=== PATIENT | female | born 1980 | race Caucasian/White ===

== ENCOUNTER 2018-02-28 01:06 | Inpatient (IN) | payer OTHER ==
--- NOTE | 2018-02-28 01:20 | PDOC ---
History of Present Illness - General Chief Complaint: Pain, Acute Stated Complaint: ABD PAIN Time Seen by Provider: 02/28/18 01:20 Past History - Past Medical History Allergies/Adverse Reactions: Allergies Allergy/AdvReac Type Severity Reaction Status Date / Time No Known Allergies Allergy Verified 02/28/18 01:14 Home Medications: Ambulatory Orders Diphenhydramine HCl [Benadryl Capsule -] 25 mg PO Q6H 11/26/14 Anemia: Yes Asthma: No Cancer: No Cardiac Disorders: No Diabetes: No HTN: No Seizures: No Thyroid Disease: No - Suicide/Smoking/Psychosocial Hx Smoking Status: Yes Smoking History: Never smoked Have you smoked in the past 12 months: No Number of Cigarettes Smoked Daily: 8 Information on smoking cessation initiated: No 'Breaking Loose' booklet given: 04/05/14 Hx Alcohol Use: No Drug/Substance Use Hx: No Substance Use Type: None Hx Substance Use Treatment: No *Physical Exam - Vital Signs Last Vital Signs Temp Pulse Resp BP Pulse Ox 99.6 F 101 H 18 118/68 98 02/28/18 01:14 02/28/18 01:14 02/28/18 01:14 02/28/18 01:14 02/28/18 01:14 *DC/Admit/Observation/Transfer - Referrals Referrals: Sondra Ames [Primary Care Provider] - - Patient Instructions - Post Discharge Activity
[2018-02-28] MEDS ORDERED: morphine CARPU-JECT 2 MG/1 ML DISP.SYRIN IVPUSH ONE (01:23)
[2018-02-28] MEDS ORDERED: SODIUM CHLORIDE 1,000 ML IV STA (01:25)
[2018-02-28] MEDS ORDERED: MORPHINE SULFATE 2 MG/ML VIAL ONE (01:37)
[2018-02-28 01:40] LABS: BASO % 0.3 % (0-2.0); EOS % 0.1 % (0-4.5); HEMATOCRIT 35.9 % (32.4-45.2); HEMOGLOBIN 12.1 GM/dL (10.7-15.3); MCH 30.6 pg (25.7-33.7); MCHC 33.7 g/dl (32.0-36.0); MEAN PLT VOLUME 8.4 fl (7.5-11.1); MONO % 9.3 % (3.8-10.2); NEUT % 77.3 % (42.8-82.8); PLATELET COUNT 410 K/MM3 (134-434); RBC 3.94 M/mm3 (3.60-5.2); RDW 13.1 % (11.6-15.6); WHITE BLOOD COUNT 13.9 K/mm3 (4.0-10.0)
--- NOTE | 2018-02-28 01:54 | PDOC ---
History of Present Illness - General Chief Complaint: Pain, Acute Stated Complaint: ABD PAIN Time Seen by Provider: 02/28/18 01:20 History Source: Patient Exam Limitations: No Limitations - History of Present Illness Travel History: No Initial Comments: 02/28/18 02:19 Best Contact: PCP: None Pmhx: None Pshx: None Allergies: nkda FH:0 Social Hx: Cigarettes/ 0 Alcohol/ 0 Drugs/0 LMP:02/05/18 37-year-old female presents to the emergency department complaining of subjective fever/chills, nausea, with right-sided flank pain x7d but denies vomiting, dizziness, headache, lightheadedness, neck/back pains, chest pain, shortness of breath, abdominal pains, pelvic pain, urinary frequency/urgency/ hesitancy, hematuria. Pain to the flank is described as 6/10 sharp nonradiating intermittent discomfort which is exacerbated on touch and alleviated minimally at rest. Past History - Past Medical History Allergies/Adverse Reactions: Allergies Allergy/AdvReac Type Severity Reaction Status Date / Time No Known Allergies Allergy Verified 02/28/18 01:14 Home Medications: Ambulatory Orders Diphenhydramine HCl [Benadryl Capsule -] 25 mg PO Q6H 11/26/14 Anemia: Yes Asthma: No Cancer: No Cardiac Disorders: No COPD: No Diabetes: No HTN: No Seizures: No Thyroid Disease: No - Immunization History Immunization Up to Date: Yes - Suicide/Smoking/Psychosocial Hx Smoking Status: Yes Smoking History: Never smoked Have you smoked in the past 12 months: No Number of Cigarettes Smoked Daily: 8 Information on smoking cessation initiated: No 'Breaking Loose' booklet given: 04/05/14 Hx Alcohol Use: No Drug/Substance Use Hx: No Substance Use Type: None Hx Substance Use Treatment: No Review of Systems - Review of Systems Able to Perform ROS?: Yes Comments:: 02/28/18 02:21 CONSTITUTIONAL: +subjective fever Absent: chills, diaphoresis, generalized weakness, malaise, loss of appetite HEENT: Absent: rhinorrhea, nasal congestion, throat pain, throat swelling, difficulty swallowing, mouth swelling, ear pain, eye pain, visual Changes CARDIOVASCULAR: Absent: chest pain, loss of consciousness, palpitations, irregular heart rate, peripheral edema RESPIRATORY: Absent: cough, shortness of breath, dyspnea with exertion, orthopnea, wheezing, stridor, hemoptysis GASTROINTESTINAL: Absent: abdominal pain, abdominal distension, nausea, vomiting, diarrhea, constipation, melena, hematochezia GENITOURINARY: +left flank pain Absent: dysuria, frequency, urgency, hesitancy, hematuria,genital pain MUSCULOSKELETAL: Absent: myalgia, arthralgia, joint swelling SKIN: Absent: rash, itching, pallor HEMATOLOGIC/IMMUNOLOGIC: Absent: easy bleeding, easy bruising, lymphadenopathy, frequent infections ENDOCRINE: Absent: unexplained weight gain, unexplained weight loss, heat intolerance, cold intolerance NEUROLOGIC: Absent: headache, focal weakness or paresthesias, dizziness, unsteady gait, seizure, mental status changes, bladder or bowel incontinence PSYCHIATRIC: Absent: anxiety, depression, suicidal or homicidal ideation, hallucinations. Is the patient limited [place] proficient: No *Physical Exam - Vital Signs Last Vital Signs Temp Pulse Resp BP Pulse Ox 99.6 F 101 H 18 118/68 97 02/28/18 01:14 02/28/18 01:14 02/28/18 01:14 02/28/18 01:14 02/28/18 01:45 - Physical Exam Comments: 02/28/18 02:21 GENERAL: Well developed, well nourished. Awake and alert. No acute distress. HEENT: Normocephalic, atraumatic. PERRLA, EOMI. No conjunctival pallor. Sclera are non- icteric. Moist mucous membranes. Oropharynx is clear. NECK: Supple. Full ROM. No JVD. Carotid pulses 2+ and symmetric, without bruits. No thyromegaly. No lymphadenopathy. CARDIOVASCULAR: Regular rate and rhythm. No murmurs, rubs, or gallops. Distal pulses are 2+ and symmetric. PULMONARY: No evidence of respiratory distress. Lungs clear to auscultation bilaterally. No wheezing, rales or rhonchi. ABDOMINAL: Soft. Non-tender. Non-distended. No rebound or guarding. No organomegaly. Normoactive bowel sounds. MUSCULOSKELETAL R CVAT Normal range of motion at all joints. No bony deformities or tenderness. EXTREMITIES: No cyanosis. No clubbing. No edema. No calf tenderness. SKIN: Warm and dry. Normal capillary refill. No rashes. No jaundice. NEUROLOGICAL: Alert, awake, appropriate. Cranial nerves 2-12 intact. No deficits to light touch and temperature in face, upper extremities and lower extremities. No motor deficits in the in face, upper extremities and lower extremities. Normoreflexic in the upper and lower extremities. Normal speech. Toes are down- going bilaterally. Gait is normal without ataxia. PSYCHIATRIC: Cooperative. Good eye contact. Appropriate mood and affect. ED Treatment Course - LABORATORY CBC & Chemistry Diagram: 02/28/18 01:24 02/28/18 01:24 - ADDITIONAL ORDERS Additional order review: 02/28/18 01:24 RBC 3.94 MCV 91.0 MCHC 33.7 RDW 13.1 D MPV 8.4 Neutrophils % 77.3 Lymphocytes % 13.0 D Monocytes % 9.3 Eosinophils % 0.1 D Basophils % 0.3 - RADIOLOGY Radiograph Interpretation: 02/28/18 04:[address]: Mild right hydronephrosis could be due to a 2 mm mild to distal ureteral stone versus a recently passed stone. His degree perinephric inflammation suggesting rupture calyx without loculated urinoma - Medications Given in the ED: ED Medications Discontinued Medications Generic Name Dose Route Start Last Admin Trade Name Freq PRN Reason Stop Dose Admin Morphine Sulfate 2 mg 02/28/18 01:23 02/28/18 01:40 Morphine Injection - IVPUSH 02/28/18 01:24 2 mg ONCE ONE Administration Progress Note - Progress Note Progress Note: 0442hrs: Microblogged Hospitalist for admission 0445hrs: Called Dr. Marti [phone] 0557hrs: Spoke to Dr. Marti/Urology, [facility] keep pt NPO. Hospitalist notified/ NPO *DC/Admit/Observation/Transfer Diagnosis at time of Disposition: Kidney calculus UTI (urinary tract infection) Qualifiers: Urinary tract infection type: acute cystitis Hematuria presence: without hematuria Qualified Code(s): N30.00 - Acute cystitis without hematuria - Discharge Dispostion Condition at time of disposition: Fair Decision to Admit order: Yes - Referrals Referrals: Sondra Ames [Primary Care Provider] - - Patient Instructions - Post Discharge Activity
[2018-02-28 02:10] LABS: ALBUMIN 3.5 g/dl (3.4-5.0); ALK PHOS 136 U/L (45-117); ANION GAP 7 (8-16); BILIRUBIN,TOTAL 0.3 mg/dL (0.2-1.0); BLOOD UREA NITROGEN 8 mg/dL (7-18); CALCIUM 8.6 mg/dL (8.5-10.1); CHLORIDE 104 mmol/L (98-107); CO2 27 mmol/L (21-32); CREATININE 0.7 mg/dL (0.55-1.02); GLUCOSE,RANDOM 99 mg/dL (74-106); POTASSIUM 3.8 mmol/L (3.5-5.1); SGOT/AST 55 U/L (15-37); SGPT/ALT 62 U/L (12-78); SODIUM 138 mmol/L (136-145); TOT PROT 7.3 g/dl (6.4-8.2)
[2018-02-28] MEDS ORDERED: KETOROLAC TROMETHAMINE 30 MG/1 ML VIAL IM ONE (02:33)
[2018-02-28] MEDS ORDERED: KETOROLAC TROMETHAMINE 30 MG/1 ML VIAL ONE (02:40)
[2018-02-28 03:26] LABS: URINE APPEARANCE CLOUDY; URINE BILIRUBIN NEGATIVE (<2.0 mg/dL); URINE COLOR YELLOW; URINE GLUCOSE (UA) NEGATIVE (NEGATIVE); URINE KETONE NEGATIVE (NEGATIVE); URINE NITRITE NEGATIVE (NEGATIVE); URINE UROBILINOGEN NEGATIVE mg/dL (0.2-1.0)
[2018-02-28 03:39] LABS: URINE LEUK ESTERASE 2+ (NEGATIVE); URINE PROTEIN 2+ (NEGATIVE)
[2018-02-28 03:41] LABS: EPI CELLS FEW /HPF (FEW); URINE BACTERIA MANY /hpf (NONE SEEN); URINE MUCUS MODERATE
[2018-02-28] MEDS ORDERED: PIPERACILLIN/TAZOB 3.375 GM 3.375 GM in DEXTROSE 5%-WATER - 50 ML IVPB ONE (04:32)
[2018-02-28] MEDS ORDERED: PIPERACILLIN/TAZOB 3.375 GM 3.375 GM/50 ML BAG IVPB ONE (04:35)
--- NOTE | 2018-02-28 05:31 | PN ---
Teaching Attending Note Name of Resident: Dacia Castle ATTENDING PHYSICIAN STATEMENT I saw and evaluated the patient. I reviewed the resident's note and discussed the case with the resident. I agree with the resident's findings and plan as documented. SUBJECTIVE: Patient is a 37 year old woman who presents to the ER with complaints of fever/ chills, nausea, with right-sided flank pain for 1 week. She denies vomiting, dizziness, headache, lightheadedness, neck/back pains, chest pain, shortness of breath, abdominal pains, pelvic pain, dysuria, urinary frequency/urgency/ hesitancy or hematuria. Flank pain is described as 6 out of 10, sharp, nonradiating and intermittent. She says she thought it was constipation and took a laxative but got no relief and also too Etelvina seltzer because she though it was gas but also had no relief. She had similar right flank pain during the 8th month of her last 4 years ago, but it was not investigated. No family history of stone disease. She smokes half a pack of cigarettes daily, smokes marijuana and her LMP was last month (she does not remember the exact date). She is not on any medications or control pills. She has two toddlers (3 year old and a 4 year old) and is worried about going home to care for them. OBJECTIVE: Alert, and in pains. Vital Signs Period Temp Pulse Resp BP Sys/Small Pulse Ox Last 24 Hr 99.6 F 101 18 118/68 97-98 HEENT: No Jaundice, eye redness or discharge, PERRLA, EOMI. Normocephalic, atraumatic. External ears are normal and hearing is grossly intact. No nasal discharge. Neck: Supple, nontender. No palpable adenopathy or thyromegaly. No JVD Chest: Good effort. Clear to auscultation and percussion. Heart: Regular. No S3, rub or murmur Abdomen: Not distended, soft, Right CVAT;no HSM. No rebound or guarding. Normoactive bowel sounds. Ext: Peripheral pulses intact. No leg edema. Skin: Warm and dry. No petechiae, rash or ecchymosis. Neuro: Alert. Oriented x3. CN 2-12 grossly intact. Sensation grossly intact in all four extremities and DTR are symmetric. Home Medications Medication Instructions Recorded Diphenhydramine HCl [Benadryl 25 mg PO Q6H 11/26/14 Capsule -] Abnormal Lab Results 02/28/18 02/28/18 02/28/18 01:24 01:24 03:15 WBC 13.9 H Anion Gap 7 L AST 55 H Alkaline Phosphatase 136 H Urine Protein 2+ H Urine Blood 2+ H Ur Leukocyte Esterase 2+ H ASSESSMENT AND PLAN: 1. Kidney stone disease - Patient having renal colic with possibly associated pyelonephritis. CT scan shows right hydronephrosis, ureteral stone, calyx rupture and perinephric inflammation. She has pyuria as well as hematuria. Will treat UTI with Rocephin 1 gm q 24 hours and give IV NS at 125 ml per hour. Morphine 2 mg IV q 3 hours PRN for pain, IV zofran 4 mg q 6 hours PRN for nausea and keep her NPO. Urology has been consulted. Upon discharge she should be referred to a pattern generator operator to do work up to search for risk factor for stone disease. 2. Tobacco use - Will provide her all the necessary assistance to facilitate smoking cessation and give her nicotine patch. 3. DVT prophylaxis - SCD and Early ambulation 4. Advance directives - Full code
--- NOTE | 2018-02-28 05:38 | HP ---
CHIEF COMPLAINT: R flank pain x 1 week PCP: HISTORY OF PRESENT ILLNESS: Pt is a 37 yo F no signif PMHx presenting with 9/10 sharp intermittent non radiating R flank pain for a week. Pain is not relieved by sharri seltzer or laxative.There is associated fevers and nausea, but no vomiting. No associated dysuria, hematuria, no urinary frequency, or urgency. No abdominal pain, diarrhea,SOB, cough,or chest pain. Pt has had similar pain 4 years when she was 8 months that resolved spontaneously. Pt is a current smoker - 1/2 a pack /day and quit marijuana use recently. Pt is (3 alive). Lmp- January 2018. ER course was notable for: (1) Tachycardia-101, WBC-13.9, UA- many bacteria, WBC-193, Hcg-ve, Ucx pending (2) Spiral CT -mild hydronephrosis with 2mm distal ureteral stones with ruptured calyx w/out loculated urinoma (3) Morphine, NS, zosyn, ceftriaxone Recent Travel: PAST MEDICAL HISTORY: PAST SURGICAL HISTORY: Social History: Smokin/2 pack/day Alcohol: Drugs: marijuana Family History: No hx of stones Allergies No Known Allergies Allergy (Verified 02/28/18 01:14) HOME MEDICATIONS: Home Medications Medication Instructions Recorded Diphenhydramine HCl [Benadryl 25 mg PO Q6H 11/26/14 Capsule -] REVIEW OF SYSTEMS CONSTITUTIONAL: Absent: fever, chills, diaphoresis, generalized weakness, malaise, loss of appetite, weight change HEENT: Absent: rhinorrhea, nasal congestion, throat pain, throat swelling, difficulty swallowing, mouth swelling, ear pain, eye pain, visual changes CARDIOVASCULAR: Absent: chest pain, syncope, palpitations, irregular heart rate, lightheadedness , peripheral edema RESPIRATORY: Absent: cough, shortness of breath, dyspnea with exertion, orthopnea, wheezing, stridor, hemoptysis GASTROINTESTINAL: Absent: abdominal pain, abdominal distension, nausea, vomiting, diarrhea, constipation, melena, hematochezia GENITOURINARY: Absent: dysuria, frequency, urgency, hesitancy, hematuria, flank pain, genital pain MUSCULOSKELETAL: Absent: myalgia, arthralgia, joint swelling, back pain, neck pain SKIN: Absent: rash, itching, pallor HEMATOLOGIC/IMMUNOLOGIC: Absent: easy bleeding, easy bruising, lymphadenopathy, frequent infections ENDOCRINE: Absent: unexplained weight gain, unexplained weight loss, heat intolerance, cold intolerance NEUROLOGIC: Absent: headache, focal weakness or paresthesias, dizziness, unsteady gait, seizure, mental status changes, bladder or bowel incontinence PSYCHIATRIC: Absent: anxiety, depression, suicidal or homicidal ideation, hallucinations. PHYSICAL EXAMINATION Vital Signs - 24 hr 02/28/18 02/28/18 02/28/18 01:14 01:45 05:36 Temperature 99.6 F Pulse Rate 101 H Respiratory 18 Rate Blood Pressure 118/68 O2 Sat by Pulse 98 97 97 Oximetry (%) GENERAL: Awake, alert, and fully oriented, in no mild painful distress. EARS, NOSE, THROAT: Moist mucous membranes. LUNGS: Breath sounds equal, clear to auscultation bilaterally. HEART: Regular rate and rhythm, normal S1 and S2 ABDOMEN: Soft, nontender, not distended, normoactive bowel sounds, R CVA tenderness ++ MUSCULOSKELETAL: Normal range of motion at all joints. LOWER EXTREMITIES: 2+ pulses, warm, well-perfused. Mild lateral R foot tenderness. No peripheral edema. NEUROLOGICAL: AAOx3. Normal speech. Normal gait. CBC, BMP 02/28/18 01:24 02/28/18 01:24 Laboratory Results - last 24 hr 02/28/18 02/28/18 02/28/18 01:00 01:24 01:24 WBC 13.9 H RBC 3.94 Hgb 12.1 Hct 35.9 D MCV 91.0 MCH 30.6 D MCHC 33.7 RDW 13.1 D Plt Count 410 D MPV 8.4 Absolute Neuts (auto) 10.7 Neutrophils % 77.3 Lymphocytes % 13.0 D Monocytes % 9.3 Eosinophils % 0.1 D Basophils % 0.3 Nucleated RBC % 0 Sodium 138 Potassium 3.8 Chloride 104 Carbon Dioxide 27 Anion Gap 7 L BUN 8 Creatinine 0.7 Creat Clearance w eGFR > 60 Random Glucose 99 Lactic Acid Calcium 8.6 Total Bilirubin 0.3 AST 55 H ALT 62 Alkaline Phosphatase 136 H Total Protein 7.3 Albumin 3.5 Urine Color Urine Appearance Urine pH Ur Specific [place] Urine Protein Urine Glucose (UA) Urine Ketones Urine Blood Urine Nitrite Urine Bilirubin Urine Urobilinogen Ur Leukocyte Esterase Urine WBC (Auto) Urine RBC (Auto) Ur Epithelial Cells Urine Bacteria Urine Mucus Urine HCG, Qual Negative 02/28/18 02/28/18 01:24 03:15 WBC RBC Hgb Hct MCV MCH MCHC RDW Plt Count MPV Absolute Neuts (auto) Neutrophils % Lymphocytes % Monocytes % Eosinophils % Basophils % Nucleated RBC % Sodium Potassium Chloride Carbon Dioxide Anion Gap BUN Creatinine Creat Clearance w eGFR Random Glucose Lactic Acid 0.8 Calcium Total Bilirubin AST ALT Alkaline Phosphatase Total Protein Albumin Urine Color Yellow Urine Appearance Cloudy Urine pH 5.0 Ur Specific [place] 1.018 Urine Protein 2+ H Urine Glucose (UA) Negative Urine Ketones Negative Urine Blood 2+ H Urine Nitrite Negative Urine Bilirubin Negative Urine Urobilinogen Negative Ur Leukocyte Esterase 2+ H Urine WBC (Auto) 193 Urine RBC (Auto) 25 Ur Epithelial Cells Few Urine Bacteria Many Urine Mucus Moderate Urine HCG, Qual ASSESSMENT/PLAN: Pt is a 37 yo F no signif PMHx presenting with 9/10 sharp intermittent non radiating R flank pain for a week , found to have mild hydronephrosis with 2mm distal ureteral stones with ruptured calyx w/out loculated urinoma Sepsis secondary to UTI In the setting of renal stones UA-Pyuria, WBC-13.9, tachycardia received zosyn, NS Give 1g Ceftriaxone stat Cont NS @125 Pain mx -Morphine 2mg Q3H R hydronephrosis with nephrolithiasis 2mm distal ureteral stones with ruptured calyx w/out loculated urinoma Morphine, NS, zosyn (received), ceftriaxone NPO Urology consult- Dr Marti- for cystoscopy and stent placement today NS @125 FEN Ns@125 Monitor lytes NPO PPx- Hold heparin for cystoscopy Dispo: Admit Med surg Visit type - Emergency Visit Emergency Visit: Yes ED Registration Date: 02/28/18 Care time: The patient presented to the Emergency Department on the above date and was hospitalized for further evaluation of their emergent condition. - New Patient This patient is new to me today: Yes Date on this admission: 02/28/18 - Critical Care Critical Care patient: No Hospitalist Screening - Colonoscopy Questionnaire Colonoscopy Questionnaire: Colonoscopy Questionnaire - Patient: 50 - 75 years old and never had a screening colonoscopy: No History of colon or rectal polyps, or CA: Unknown History of IBD, Crohn's disease or UC: Unknown History of abdominal radiation therapy as a child: Unknown - Relative: 1 with colon or rectal CA, or polyps at age 60 or younger: Unknown Colon or rectal CA diagnosed at age 45 or younger: Unknown Multiple relatives with colon or rectal CA: Unknown - Outcome: Screening Result: Negative Screen
[2018-02-28] MEDS ORDERED: CEFTRIAXONE 1 MG in DEXTROSE 5%-WATER - 50 ML IVPB ONE (05:53)
[2018-02-28] MEDS ORDERED: MORPHINE SULFATE 2 MG/ML VIAL IVPUSH PRN ×2 (05:56→08:55)
[2018-02-28] MEDS ORDERED: CEFTRIAXONE 1 GM in DEXTROSE 5%-WATER - 50 ML IVPB ONE (06:00)
[2018-02-28] MEDS ORDERED: SODIUM CHLORIDE 1,000 ML IV SCH ×2 (06:00→08:55)
[2018-02-28] MEDS ORDERED: CEFTRIAXONE 1 GM/50 ML BAG ONE (06:01)
[2018-02-28] MEDS ORDERED: ONDANSETRON 4 MG/2 ML VIAL IVPUSH PRN ×2 (07:12→08:55)
--- NOTE | 2018-02-28 08:10 | CON.GU ---
Consult Consult Specialty:: Referred by:: Terri Reason for Consultation:: R ureteral calculus - History of Present Illness Chief Complaint: R flank pain History of Present Illness: 37 yo F no signif PMHx presenting with 9/10 sharp intermittent non radiating R flank pain for a week. Pain is not relieved by sharri seltzer or laxative.There is associated fevers and nausea, but no vomiting. No associated dysuria, hematuria, no urinary frequency, or urgency. No abdominal pain, diarrhea,SOB, cough,or chest pain. Pt has had similar pain 4 years when she was 9 months that resolved spontaneously. Pt is a current smoker - 1/2 a pack /day and quit marijuana use recently. Pt is (3 alive). Lmp- January 2018. ER course was notable for: (1) Tachycardia-101, WBC-13.9, UA- many bacteria, WBC-193, Hcg-ve, Ucx pending (2) Spiral CT -mild hydronephrosis with 2mm distal ureteral stones with ruptured calyx w/out loculated urinoma (3) Morphine, NS, zosyn, ceftriaxone cons req - History Source History Provided By: Patient, Medical Record - Past Medical History Renal/: Yes: Renal Calculi ...LMP: 11/01/12 Infectious Disease: Yes: STD's (chlamydia treated in 1998) - Past Surgical History Past Surgical History: Yes: None - Alcohol/Substance Use Hx Alcohol Use: No History of Substance Use: reports: None - Smoking History Smoking history: Never smoked Have you smoked in the past 12 months: No Aproximately how many cigarettes per day: 8 - Social History Usual Living Arrangement: With Significant Other ADL: Independent History of Recent Travel: No Home Medications - Allergies Allergies/Adverse Reactions: Allergies Allergy/AdvReac Type Severity Reaction Status Date / Time No Known Allergies Allergy Verified 02/28/18 01:14 - Home Medications Home Medications: Ambulatory Orders Diphenhydramine HCl [Benadryl Capsule -] 25 mg PO Q6H 11/26/14 Review of Systems - Review of Systems Gastrointestinal: reports: Nausea, Vomiting Genitourinary: reports: Flank Pain Physical Exam- Vital Signs: Vital Signs Temperature 99.6 F 02/28/18 01:14 Pulse Rate 101 H 02/28/18 01:14 Respiratory Rate 18 02/28/18 01:14 Blood Pressure 118/68 02/28/18 01:14 O2 Sat by Pulse Oximetry (%) 97 02/28/18 05:36 Gastrointestinal: Yes: Soft Renal/: Yes: CVA Tenderness - Right External Genitalia: Yes: WNL Labs: CBC, BMP 02/28/18 01:24 02/28/18 01:24 Imaging - Results Cat Scan: Report Reviewed, Image Reviewed Problem List - Problems (1) Ureteral calculus Assessment/Plan: cysto R JJ stent insertion Code(s): N20.1 - CALCULUS OF URETER (2) Hydronephrosis Code(s): N13.30 - UNSPECIFIED HYDRONEPHROSIS (3) Leukocytosis Code(s): D72.829 - ELEVATED WHITE BLOOD CELL COUNT, UNSPECIFIED (4) UTI (urinary tract infection) Assessment/Plan: U cx, IV abxs Code(s): N39.0 - URINARY TRACT INFECTION, SITE NOT SPECIFIED Qualifiers: Urinary tract infection type: acute cystitis Hematuria presence: without hematuria Qualified Code(s): N30.00 - Acute cystitis without hematuria
--- NOTE | 2018-02-28 08:16 | OP ---
Operative Note - Note: Pre-Operative Diagnosis: R ureteral calculus, R hydronephrosis, UTI Operation: cystoscopy, R JJ stent insertion Findings: R ureteral calculus, R hydronephrosis Post-Operative Diagnosis: Same as Pre-op Surgeon: Guilherme Marti Anesthesiologist/CAPSULE MACHINE OPERATOR: Boris Gutierrez Anesthesia: General Estimated Blood Loss (mls): 0 Drains & Tubes with Location: 6 fr 24 cm R JJ stent Operative Report Dictated: Yes
[2018-02-28] MEDS ORDERED: MIDAZOLAM HCL 2 MG/2 ML SINGLE DOSE VIAL ONE (08:21)
[2018-02-28] MEDS ORDERED: PROPOFOL 20 ML ONE (08:21)
[2018-02-28] MEDS ORDERED: GENTAMICIN SO4 80 MG/2 ML VIAL IVPB ONE (08:30)
[2018-02-28] MEDS ORDERED: GENTAMICIN SO4 80 MG/2 ML VIAL ONE (08:33)
[2018-02-28] MEDS ORDERED: DEXAMETHASONE SOD PHOSPHATE 4 MG/1 ML VIAL ONE (08:43)
[2018-02-28] MEDS ORDERED: ACETAMINOPHEN 325 MG TABLET (FP) PO PRN ×2 (09:04→11:19)
[2018-02-28 09:05] VITALS: BMI 27.6
[2018-02-28] MEDS ORDERED: LACTATED RINGERS SOLUTION 1,000 ML IV SCH (09:15)
--- NOTE | 2018-02-28 09:28 | OP ---
DATE OF OPERATION: 02/28/2018 PREOPERATIVE DIAGNOSES: Right ureteral calculus, right hydronephrosis, and urinary tract infection. POSTOPERATIVE DIAGNOSES: Right ureteral calculus, right hydronephrosis, and urinary tract infection. PROCEDURE: Cystoscopy, right double-J stent insertion. SURGEON: Guilherme Plata MD LANDSCAPE HORTICULTURE INSTRUCTOR: None. ANESTHESIA: General via laryngeal mask. ANESTHESIOLOGIST: Boris Gutierrez DO SPECIMENS: None. CULTURES: None. DRAINS: A 6-Welsh 24-cm right double-J stent. ESTIMATED BLOOD LOSS: None. COMPLICATIONS: None. PROCEDURE: The patient was brought into the operating room, placed on the operating room table in supine position. After administration of general anesthesia via laryngeal mask, intravenous antibiotics were administered, sequential compression devices were placed, and patient was placed in the dorsal lithotomy position. The vagina and perineum were prepped and draped in the usual sterile manner. A 22-Welsh cystoscope was inserted into the bladder with the obturator in place, where the obturator was removed and urine was evacuated. The 30-degree telescope was inserted and cystoscopy was performed. Examination showed no foreign bodies, tumors, stones, inflammation. Both ureteral orifices were in the usual location with diminished efflux from the right ureteral orifice. The right ureteral orifice was now cannulated with a 0.038 guidewire, which was advanced to the level of the right renal pelvis under fluoroscopic and direct visual guidance. Under fluoroscopy, the right distal ureteral calculi were visualized faintly. The dual-lumen catheter was inserted, retrograde pyelograms done to opacify the collecting system, which demonstrated hydronephrosis with the guidewire coiled within the renal pelvis. Dual-lumen catheter was removed and a 6-Welsh 24-cm right double-J stent was inserted over the guidewire under direct visual and fluoroscopic guidance, leaving one coil in the renal pelvis and one coil in the bladder. The bladder was emptied, cystoscope removed. The patient tolerated the procedure well and was transferred to the recovery room in stable condition. GUILHERME PLATA M.D. [id number]
--- NOTE | 2018-02-28 11:26 | PN ---
Progress Note (short form) - Note Progress Note: Patient seen and examined, just got back from OR, c/o dysuria and urinary frequency. No nausea, vomiting currently. Pain well controlled. Objective: Vital Signs Period Temp Pulse Resp BP Sys/Small Pulse Ox Last 24 Hr 97.6 F-99.6 F 74-101 16-20 101-125/62-77 97-100 Intake & Output 02/25/18 02/26/18 02/27/18 02/28/18 23:59 23:59 23:59 23:59 Intake Total 550 Output Total 2300 Balance -1750 Weight 156 lb General: sitting in no acute distress Abdomen:soft, Right CVA tenderness, No suprapubic tenderness, ND Extremities: no edema Chest CTAB, no rales or wheezing Home Medications Medication Instructions Recorded Diphenhydramine HCl [Benadryl 25 mg PO Q6H 11/26/14 Capsule -] Active Medications Acetaminophen (Tylenol -) 650 mg PO Q4H PRN PRN Reason: PAIN LEVEL 1-5 Ceftriaxone Sodium 1 gm/ (Dextrose) 50 mls @ 100 mls/hr IVPB DAILY [facility] Sodium Chloride (Normal Saline -) 1,000 mls @ 100 mls/hr IV ASDIR ALL[facility] Ketorolac Tromethamine (Toradol Injection -) 15 mg IVPUSH Q6H PRN PRN Reason: PAIN LEVEL 6-10 Stop: 03/05/18 11:19 Melatonin (Melatonin) 10 mg PO HS PRN PRN Reason: INSOMNIA Ondansetron HCl (Zofran Injection) 4 mg IVPUSH Q6H PRN PRN Reason: NAUSEA Laboratory Results - last 24 hr 02/28/18 02/28/18 02/28/18 01:00 01:24 01:24 WBC 13.9 H RBC 3.94 Hgb 12.1 Hct 35.9 D MCV 91.0 MCH 30.6 D MCHC 33.7 RDW 13.1 D Plt Count 410 D MPV 8.4 Absolute Neuts (auto) 10.7 Neutrophils % 77.3 Lymphocytes % 13.0 D Monocytes % 9.3 Eosinophils % 0.1 D Basophils % 0.3 Nucleated RBC % 0 Sodium 138 Potassium 3.8 Chloride 104 Carbon Dioxide 27 Anion Gap 7 L BUN 8 Creatinine 0.7 Creat Clearance w eGFR > 60 Random Glucose 99 Lactic Acid Calcium 8.6 Total Bilirubin 0.3 AST 55 H ALT 62 Alkaline Phosphatase 136 H Total Protein 7.3 Albumin 3.5 Urine Color Urine Appearance Urine pH Ur Specific [place] Urine Protein Urine Glucose (UA) Urine Ketones Urine Blood Urine Nitrite Urine Bilirubin Urine Urobilinogen Ur Leukocyte Esterase Urine WBC (Auto) Urine RBC (Auto) Ur Epithelial Cells Urine Bacteria Urine Mucus Urine HCG, Qual Negative 02/28/18 02/28/18 01:24 03:15 WBC RBC Hgb Hct MCV MCH MCHC RDW Plt Count MPV Absolute Neuts (auto) Neutrophils % Lymphocytes % Monocytes % Eosinophils % Basophils % Nucleated RBC % Sodium Potassium Chloride Carbon Dioxide Anion Gap BUN Creatinine Creat Clearance w eGFR Random Glucose Lactic Acid 0.8 Calcium Total Bilirubin AST ALT Alkaline Phosphatase Total Protein Albumin Urine Color Yellow Urine Appearance Cloudy Urine pH 5.0 Ur Specific [place] 1.018 Urine Protein 2+ H Urine Glucose (UA) Negative Urine Ketones Negative Urine Blood 2+ H Urine Nitrite Negative Urine Bilirubin Negative Urine Urobilinogen Negative Ur Leukocyte Esterase 2+ H Urine WBC (Auto) 193 Urine RBC (Auto) 25 Ur Epithelial Cells Few Urine Bacteria Many Urine Mucus Moderate Urine HCG, Qual CT A/P results reviewed Assessment/Plan: 37 yof with no significant pMHx here with Obstructive uropathy and UTI with pyelonephritis. -Nephrolithiasis with obstructive uropathy s/p right ureteral stent placement -Complicated UTI with right sided pyelonephritis with early sepsis -Nicotine dependence Plan: Urology input noted, s/p stent placement. D/c morphine. Acetaminophen/toradol prn for pain. Decreased IVF to 100 ml/hr. PO as tolerated. Ceftriaxone, follow up urine cultures. anticipate 10-14 days treatment. Nicotine patch DVTPPx with lovenox with lovenox in 24 hours Dispo pending clinical improvement, likely in 1-2 days. Plan discussed with patient in detail, all questions answered. Visit type - Emergency Visit Emergency Visit: No - New Patient This patient is new to me today: Yes Date on this admission: 02/28/18 - Critical Care Critical Care patient: No - Discharge Referral Referred to [facility] Med P.C.: No
[2018-02-28] MEDS: NICOTINE 14 MG/24 HOURS TOPICAL PATCH TD SCH (12:22)
[2018-02-28] MEDS: SODIUM CHLORIDE 1,000 ML IV SCH (12:24)
[2018-02-28] MEDS: KETOROLAC TROMETHAMINE 15 MG/ML VIAL IVPUSH PRN (14:31)
[2018-02-28] MEDS: MELATONIN 5 MG TABLETS PO PRN (23:45)
[2018-03-01] MEDS: KETOROLAC TROMETHAMINE 15 MG/ML VIAL IVPUSH PRN ×2 (00:37→07:02)
[2018-03-01] MEDS: SODIUM CHLORIDE 1,000 ML IV SCH ×2 (03:09→12:27)
[2018-03-01 07:40] LABS: BASO % 0.7 % (0-2.0); EOS % 0.1 % (0-4.5); HEMATOCRIT 30.2 % (32.4-45.2); HEMOGLOBIN 10.2 GM/dL (10.7-15.3); LYMPH % 26.5 % (8-40); MCH 31.2 pg (25.7-33.7); MCHC 33.7 g/dl (32.0-36.0); MEAN CELL VOLUME 92.5 fl (80-96); MEAN PLT VOLUME 9.3 fl (7.5-11.1); MONO % 7.4 % (3.8-10.2); NEUT % 65.3 % (42.8-82.8); PLATELET COUNT 340 K/MM3 (134-434); RBC 3.26 M/mm3 (3.60-5.2); RDW 12.9 % (11.6-15.6)
[2018-03-01 08:04] LABS: ANION GAP 9 (8-16); BLOOD UREA NITROGEN 7 mg/dL (7-18); CALCIUM 8.2 mg/dL (8.5-10.1); CHLORIDE 109 mmol/L (98-107); CO2 22 mmol/L (21-32); CREATININE 0.4 mg/dL (0.55-1.02); GLUCOSE,RANDOM 84 mg/dL (74-106); POTASSIUM 3.9 mmol/L (3.5-5.1); SODIUM 140 mmol/L (136-145)
--- NOTE | 2018-03-01 08:28 | PN ---
Progress Note, Physician Chief Complaint: day 1 s/p cysto/stent - Current Medication List Current Medications: Active Medications Acetaminophen (Tylenol -) 650 mg PO Q4H PRN PRN Reason: PAIN LEVEL 1-5 Last Admin: 03/01/18 05:40 Dose: 650 mg Enoxaparin Sodium (Lovenox -) 40 mg SQ DAILY [facility] Ceftriaxone Sodium 1 gm/ (Dextrose) 50 mls @ 100 mls/hr IVPB DAILY [facility] Sodium Chloride (Normal Saline -) 1,000 mls @ 100 mls/hr IV ASDIR ALLEN Last Admin: 03/01/18 03:09 Dose: 100 mls/hr Ketorolac Tromethamine (Toradol Injection -) 15 mg IVPUSH Q6H PRN PRN Reason: PAIN LEVEL 6-10 Stop: 03/05/18 11:19 Last Admin: 03/01/18 07:02 Dose: 15 mg Melatonin (Melatonin) 10 mg PO HS PRN PRN Reason: INSOMNIA Last Admin: 02/28/18 23:45 Dose: 10 mg Nicotine (Nicoderm Patch -) 14 mg TD DAILY [facility] Last Admin: 02/28/18 12:22 Dose: 14 mg Ondansetron HCl (Zofran Injection) 4 mg IVPUSH Q6H PRN PRN Reason: NAUSEA Oxycodone/Acetaminophen (Percocet 5/325 -) 1 combo PO ONCE ONE Stop: 03/01/18 08:01 - Objective Vital Signs: Vital Signs Temperature 97.9 F 03/01/18 06:00 Pulse Rate 85 03/01/18 06:00 Respiratory Rate 20 03/01/18 06:00 Blood Pressure 132/92 03/01/18 06:00 O2 Sat by Pulse Oximetry (%) 98 02/28/18 21:00 Labs: CBC, BMP 03/01/18 06:30 03/01/18 06:30 Assessment/Plan Doing well after GA for cysto; no anesthetic issues/complications
[2018-03-01] MEDS ORDERED: ACETAMINOPHEN 325 MG TABLET (FP) PO ONE ×3 (09:00→23:15)
[2018-03-01] MEDS ORDERED: oxyCODONE HCL 5 MG TABLET PO ONE ×3 (09:00→23:15)
[2018-03-01] MEDS ORDERED: CEFTRIAXONE 1,000 MG in DEXTROSE 5%-WATER - 50 ML IVPB SCH (10:00)
[2018-03-01] MEDS ORDERED: PT OWN MED DRAWER 7, Y5N ONE (10:46)
[2018-03-01] MEDS ORDERED: cefTRIAXone SODIUM 1 GM VIAL ONE (10:47)
[2018-03-01] MEDS ORDERED: DEXTROSE 5%-WATER - 50 ML IVPB ONE (10:47)
[2018-03-01] MEDS: NICOTINE 14 MG/24 HOURS TOPICAL PATCH TD SCH (11:12)
[2018-03-01] MEDS: ENOXAPARIN NA (PORCINE) 40 MG/0.4 ML DISP.SYRIN SQ SCH (11:12)
[2018-03-01] MEDS: CEFTRIAXONE 1 GM in DEXTROSE 5%-WATER - 50 ML IVPB SCH (11:12)
[2018-03-01] MEDS: PHENAZOPYRIDINE HCL 100 MG TABLET (FP) PO SCH ×2 (12:27→17:32)
--- NOTE | 2018-03-01 13:08 | PN ---
Physical Exam: SUBJECTIVE: Patient seen and examined. C/o about urethral discomfort and R flank pain. No fevers overnight. Feels ketorolac is not sufficient. Got stent placement yesterday. OBJECTIVE: Vital Signs Period Temp Pulse Resp BP Sys/Small Pulse Ox Last 24 Hr 97.7 F-98.4 F 62-85 18-20 104-138/70-92 98 Vital Signs Temp 99.4 F 03/01/18 17:45 Pulse 96 H 03/01/18 17:45 Resp 16 03/01/18 17:45 BP 124/55 03/01/18 17:45 Pulse Ox 98 03/01/18 09:00 Intake & Output 02/28/18 03/01/18 03/01/18 23:59 11:59 23:59 Intake Total 2842 474 6103 Balance 7488 812 0470 Intake: IV 1300 900 Normal Saline - 1,000 ml 1300 900 @ 100 mls/hr IV ASDIR ALLEN Rx#:[id number] IVPB 50 Oral 540 185 1298 Other: Voiding Method Toilet Toilet Toilet # Unmeasured Voids Void 2 Bowel Movement No GENERAL: The patient is awake, alert, and fully oriented, in mild painful distress. LUNGS: Breath sounds equal, clear to auscultation bilaterally, no wheezes, no crackles, no accessory muscle use. HEART: Regular rate and rhythm, S1, S2 without murmur, rub or gallop. ABDOMEN: Soft, non tender suprapubic region, nondistended, normoactive bowel sounds, R CVA tenderness EXTREMITIES: 2+ pulses, warm, well-perfused, no edema. NEUROLOGICAL: AAOx3. Moves all limbs Laboratory Results - last 24 hr 03/01/18 03/01/18 06:30 06:30 WBC 12.0 H RBC 3.26 L Hgb 10.2 L Hct 30.2 L D MCV 92.5 MCH 31.2 MCHC 33.7 RDW 12.9 Plt Count 340 MPV 9.3 D Absolute Neuts (auto) 7.8 Neutrophils % 65.3 Lymphocytes % 26.5 D Monocytes % 7.4 Eosinophils % 0.1 Basophils % 0.7 Nucleated RBC % 0 Sodium 140 Potassium 3.9 Chloride 109 H Carbon Dioxide 22 Anion Gap 9 BUN 7 Creatinine 0.4 L Creat Clearance w eGFR > 60 Random Glucose 84 Calcium 8.2 L Phosphorus 3.0 Magnesium 2.0 Active Medications Generic Name Dose Route Start Last Admin Trade Name Freq PRN Reason Stop Dose Admin Acetaminophen 650 mg 02/28/18 11:19 03/01/18 05:40 Tylenol - PO 650 mg Q4H PRN Administration PAIN LEVEL 1-5 Enoxaparin Sodium 40 mg 03/01/18 10:00 03/01/18 11:12 Lovenox - SQ 40 mg DAILY [facility] Administration Ceftriaxone Sodium 1 gm/ 50 mls @ 100 mls/hr 03/01/18 10:00 03/01/18 11:12 Dextrose IVPB 100 mls/hr DAILY [facility] Administration Sodium Chloride 1,000 mls @ 100 mls/hr 02/28/18 11:21 03/01/18 03:09 Normal Saline - IV 100 mls/hr ASDIR ALLEN Administration Ketorolac Tromethamine 15 mg 02/28/18 11:20 03/01/18 07:02 Toradol Injection - IVPUSH 03/05/18 11:19 15 mg Q6H PRN Administration PAIN LEVEL 6-10 Melatonin 10 mg 02/28/18 11:20 02/28/18 23:45 Melatonin PO 10 mg HS PRN Administration INSOMNIA Nicotine 14 mg 02/28/18 11:30 03/01/18 11:12 Nicoderm Patch - TD 14 mg DAILY [facility] Administration Ondansetron HCl 4 mg 02/28/18 08:55 Zofran Injection IVPUSH Q6H PRN NAUSEA Phenazopyridine HCl 100 mg 03/01/18 13:00 03/01/18 12:27 Pyridium - PO 03/03/18 12:59 100 mg PC [facility] Administration ASSESSMENT/PLAN: Pt is a 37 yo F smoker with no signif PMHx presenting with 9/10 sharp intermittent non radiating R flank pain for a week , found to have mild hydronephrosis with 2mm distal ureteral stones with ruptured calyx w/out loculated urinoma Sepsis secondary to UTI In the setting of renal stones UA-Pyuria, WBC-13.9, tachycardia received zosyn, NS Cont 1g Ceftriaxone daily Cont NS @125 Pain mx -15mg ketorolac, percocet given x2 Zosyn R hydronephrosis with nephrolithiasis now s/p stent palcement (02/28/18) 2mm distal ureteral stones with ruptured calyx w/out loculated urinoma Pain mx, NS, zosyn (received), ceftriaxone UA, Ucx- pending Urology consult- Dr Marti-apprec recs NS @125 Smoking hx Pt still having a lot of cravings on 14TD, requesting higher dose Nicotine patch 21TD FEN Ns@125 Monitor lytes Regular diet PPx- Continue heparin Dispo: Admit Med surg Dispo planning following sensitivities Visit type - Emergency Visit Emergency Visit: Yes ED Registration Date: 02/28/18 Care time: The patient presented to the Emergency Department on the above date and was hospitalized for further evaluation of their emergent condition. - New Patient This patient is new to me today: No - Critical Care Critical Care patient: No - Discharge Referral Referred to [facility] Med [facility] No
--- NOTE | 2018-03-01 14:47 | PN ---
Teaching Attending Note Name of Resident: Dacia Castle ATTENDING PHYSICIAN STATEMENT I saw and evaluated the patient. I reviewed the resident's note and discussed the case with the resident. I agree with the resident's findings and plan as documented with exceptions below. SUBJECTIVE: Patient seen and examined, still reports dysuria/urgency, some back discomfort. But no fevers/chills, tolerating diet well. OBJECTIVE: Vital Signs Period Temp Pulse Resp BP Sys/Small Pulse Ox Last 24 Hr 97.7 F-98.4 F 62-85 18-20 104-138/70-92 98-98 Intake & Output 02/26/18 02/27/18 02/28/18 03/01/18 23:59 23:59 23:59 23:59 Intake Total 2450 240 Output Total 2300 Balance 150 240 Weight 156 lb General: lying in bed in no acute distress Abdomen:soft, mild right CVA tenderness, no suprapubic tenderness, NT otherwise , ND, positive bowel sounds Active Medications Acetaminophen (Tylenol -) 650 mg PO Q4H PRN PRN Reason: PAIN LEVEL 1-5 Last Admin: 03/01/18 05:40 Dose: 650 mg Enoxaparin Sodium (Lovenox -) 40 mg SQ DAILY [facility] Last Admin: 03/01/18 11:12 Dose: 40 mg Ceftriaxone Sodium 1 gm/ (Dextrose) 50 mls @ 100 mls/hr IVPB DAILY [facility] Last Admin: 03/01/18 11:12 Dose: 100 mls/hr Sodium Chloride (Normal Saline -) 1,000 mls @ 100 mls/hr IV ASDIR [facility] Last Admin: 03/01/18 03:09 Dose: 100 mls/hr Ketorolac Tromethamine (Toradol Injection -) 15 mg IVPUSH Q6H PRN PRN Reason: PAIN LEVEL 6-10 Stop: 03/05/18 11:19 Last Admin: 03/01/18 07:02 Dose: 15 mg Melatonin (Melatonin) 10 mg PO HS PRN PRN Reason: INSOMNIA Last Admin: 02/28/18 23:45 Dose: 10 mg Nicotine (Nicoderm Patch -) 14 mg TD DAILY [facility] Last Admin: 03/01/18 11:12 Dose: 14 mg Ondansetron HCl (Zofran Injection) 4 mg IVPUSH Q6H PRN PRN Reason: NAUSEA Phenazopyridine HCl (Pyridium -) 100 mg PO PC [facility] Stop: 03/03/18 12:59 Last Admin: 03/01/18 12:27 Dose: 100 mg Laboratory Results - last 24 hr 03/01/18 03/01/18 06:30 06:30 WBC 12.0 H RBC 3.26 L Hgb 10.2 L Hct 30.2 L D MCV 92.5 MCH 31.2 MCHC 33.7 RDW 12.9 Plt Count 340 MPV 9.3 D Absolute Neuts (auto) 7.8 Neutrophils % 65.3 Lymphocytes % 26.5 D Monocytes % 7.4 Eosinophils % 0.1 Basophils % 0.7 Nucleated RBC % 0 Sodium 140 Potassium 3.9 Chloride 109 H Carbon Dioxide 22 Anion Gap 9 BUN 7 Creatinine 0.4 L Creat Clearance w eGFR > 60 Random Glucose 84 Calcium 8.2 L Phosphorus 3.0 Magnesium 2.0 Microbiology 02/28/18 01:00 Urine - Urine Clean Catch Urine Culture - Preliminary Lactose Fermenting Neg Bacilli ASSESSMENT AND PLAN: 37 yof with no significant pMHx here with Obstructive uropathy and UTI with pyelonephritis. -Nephrolithiasis with obstructive uropathy s/p right ureteral stent placement -Complicated UTI with right sided pyelonephritis with early sepsis -Nicotine dependence Plan: Urology input noted, s/p stent placement. Acetaminophen/toradol prn for pain. Add pyriridum. IVF, po as tolerated. Ceftriaxone day 2, urine cx with GNB, follow up. anticipate 10-14 days treatment. Nicotine patch DVTPPx lovenox Dispo in 24 hours pending urine cultures if clinically improved. Plan discussed with patient in detail, all questions answered.
--- NOTE | 2018-03-01 17:36 | EKG ---
Test Reason : Blood Pressure : / mmHG Vent. Rate : 079 BPM Atrial Rate : 079 BPM P-R Int : 158 ms QRS Dur : 070 ms QT Int : 410 ms P-R-T Axes : 041 002 -02 degrees QTc Int : 470 ms NORMAL SINUS RHYTHM NORMAL ECG NO PREVIOUS ECGS AVAILABLE Confirmed by TRAY LEE MD ([id number]) on 03/01/2018 5:36:19 PM Referred By: Confirmed By:TRAY LEE MD
[2018-03-01] MEDS ORDERED: diphenhydrAMINE HCL 25 MG CAPSULE (FP) PO ONE (18:06)
[2018-03-01] MEDS: MELATONIN 5 MG TABLETS PO PRN (22:20)
[2018-03-02] MEDS: KETOROLAC TROMETHAMINE 15 MG/ML VIAL IVPUSH PRN ×2 (02:12→08:46)
[2018-03-02] MEDS: SODIUM CHLORIDE 1,000 ML IV SCH (03:27)
[2018-03-02 07:19] LABS: BASO % 0.7 % (0-2.0); EOS % 1.3 % (0-4.5); HEMATOCRIT 31.6 % (32.4-45.2); HEMOGLOBIN 10.8 GM/dL (10.7-15.3); MCH 31.3 pg (25.7-33.7); MCHC 34.2 g/dl (32.0-36.0); MEAN CELL VOLUME 91.5 fl (80-96); MEAN PLT VOLUME 8.9 fl (7.5-11.1); MONO % 8.6 % (3.8-10.2); NEUT % 53.4 % (42.8-82.8); PLATELET COUNT 400 K/MM3 (134-434); RBC 3.45 M/mm3 (3.60-5.2); RDW 13.1 % (11.6-15.6)
[2018-03-02 07:30] LABS: ALBUMIN 2.7 g/dl (3.4-5.0); ANION GAP 3 (8-16); BLOOD UREA NITROGEN 8 mg/dL (7-18); CALCIUM 8.3 mg/dL (8.5-10.1); CHLORIDE 108 mmol/L (98-107); CO2 29 mmol/L (21-32); GLUCOSE,RANDOM 79 mg/dL (74-106); MAGNESIUM 1.7 mg/dL (1.8-2.4); POTASSIUM 3.8 mmol/L (3.5-5.1); SODIUM 140 mmol/L (136-145)
[2018-03-02 07:34] LABS: ALK PHOS 100 U/L (45-117); BILIRUBIN,TOTAL 0.2 mg/dL (0.2-1.0); CREATININE 0.6 mg/dL (0.55-1.02); PHOSPHOROUS 3.4 mg/dL (2.5-4.9); SGOT/AST 25 U/L (15-37); SGPT/ALT 54 U/L (12-78); TOT PROT 5.9 g/dl (6.4-8.2)
--- NOTE | 2018-03-02 08:15 | PN ---
Physical Exam: SUBJECTIVE: Patient seen and examined. Still c/o of right flank pain and urethral discomfort. Pt has been receiving toradol round the clock and feels it is not helping. Got 2 doses of percocet. No fevers, tolerating PO. Pending urine cultures and sensitivities. OBJECTIVE: Vital Signs Period Temp Pulse Resp BP Sys/Smlal Pulse Ox Last 24 Hr 97.8 F-99.4 F 68-96 16-18 102-135/51-97 98-98 Vital Signs Temp 97.9 F 03/02/18 18:33 Pulse 80 03/02/18 18:33 Resp 18 03/02/18 18:33 BP 128/84 03/02/18 18:33 Pulse Ox 98 03/02/18 09:00 Intake & Output 03/01/18 03/02/18 03/02/18 23:59 11:59 23:59 Intake Total 2110 1200 1100 Balance 2110 1200 1100 Intake: IV 900 1200 1000 Normal Saline - 1,000 ml 900 1200 1000 @ 100 mls/hr IV ASDIR ALLEN Rx#:[id number] IVPB 50 100 Oral 1160 Other: Voiding Method Toilet Toilet Toilet # Unmeasured Voids Void 1 1 4 Bowel Movement No No GENERAL: The patient is awake, alert, and fully oriented, in no painful distress. LUNGS: Breath sounds equal, clear to auscultation bilaterally, no wheezes, no crackles, no accessory muscle use. HEART: Regular rate and rhythm, S1, S2 without murmur, rub or gallop. ABDOMEN: Soft, mildly tender suprapubic region, nondistended, normoactive bowel sounds, R CVA tenderness EXTREMITIES: 2+ pulses, warm, well-perfused, no edema. NEUROLOGICAL: AAOx3. Moves all limbs, normal speech Laboratory Results - last 24 hr 03/02/18 03/02/18 06:45 06:45 WBC 10.0 RBC 3.45 L Hgb 10.8 Hct 31.6 L MCV 91.5 MCH 31.3 MCHC 34.2 RDW 13.1 Plt Count 400 MPV 8.9 Absolute Neuts (auto) 5.3 Neutrophils % 53.4 Lymphocytes % 36.0 D Monocytes % 8.6 Eosinophils % 1.3 D Basophils % 0.7 Nucleated RBC % 0 Sodium 140 Potassium 3.8 Chloride 108 H Carbon Dioxide 29 Anion Gap 3 L BUN 8 Creatinine 0.6 Creat Clearance w eGFR > 60 Random Glucose 79 Calcium 8.3 L Phosphorus 3.4 Magnesium 1.7 L Total Bilirubin 0.2 AST 25 ALT 54 Alkaline Phosphatase 100 D Total Protein 5.9 L Albumin 2.7 L Active Medications Generic Name Dose Route Start Last Admin Trade Name Freq PRN Reason Stop Dose Admin Acetaminophen 650 mg 02/28/18 11:19 03/01/18 05:40 Tylenol - PO 650 mg Q4H PRN Administration PAIN LEVEL 1-5 Enoxaparin Sodium 40 mg 03/01/18 10:00 03/01/18 11:12 Lovenox - SQ 40 mg DAILY [facility] Administration Ceftriaxone Sodium 1 gm/ 50 mls @ 100 mls/hr 03/01/18 10:00 03/01/18 11:12 Dextrose IVPB 100 mls/hr DAILY [facility] Administration Sodium Chloride 1,000 mls @ 100 mls/hr 02/28/18 11:21 03/02/18 03:27 Normal Saline - IV 100 mls/hr ASDIR [facility] Administration Ketorolac Tromethamine 15 mg 02/28/18 11:20 03/02/18 02:12 Toradol Injection - IVPUSH 03/05/18 11:19 15 mg Q6H PRN Administration PAIN LEVEL 6-10 Melatonin 10 mg 02/28/18 11:20 03/01/18 22:20 Melatonin PO 10 mg HS PRN Administration INSOMNIA Nicotine 21 mg 03/01/18 18:05 Nicoderm Patch - TD DAILY [facility] Ondansetron HCl 4 mg 02/28/18 08:55 Zofran Injection IVPUSH Q6H PRN NAUSEA Phenazopyridine HCl 100 mg 03/01/18 13:00 03/01/18 17:32 Pyridium - PO 03/03/18 12:59 100 mg PC [facility] Administration Current Medications Acetaminophen (Tylenol -) 650 mg PO Q4H PRN PRN Reason: PAIN LEVEL 1-5 Last Admin: 03/01/18 05:40 Dose: 650 mg Enoxaparin Sodium (Lovenox -) 40 mg SQ DAILY [facility] Last Admin: 03/02/18 10:09 Dose: 40 mg Ceftriaxone Sodium 1 gm/ (Dextrose) 50 mls @ 100 mls/hr IVPB DAILY [facility] Last Admin: 03/02/18 10:08 Dose: 100 mls/hr Dextrose/Sodium Chloride (D5-Ns -) 1,000 mls @ 125 mls/hr IV ASDIR [facility] Last Admin: 03/02/18 18:27 Dose: 125 mls/hr Ibuprofen (Motrin -) 400 mg PO Q6H PRN PRN Reason: FEVER Last Admin: 03/02/18 17:15 Dose: 400 mg Melatonin (Melatonin) 10 mg PO HS PRN PRN Reason: INSOMNIA Last Admin: 03/01/18 22:20 Dose: 10 mg Nicotine (Nicoderm Patch -) 21 mg TD DAILY [facility] Last Admin: 03/02/18 09:00 Dose: 21 mg Ondansetron HCl (Zofran Injection) 4 mg IVPUSH Q6H PRN PRN Reason: NAUSEA Phenazopyridine HCl (Pyridium -) 100 mg PO PC [facility] Stop: 03/03/18 12:59 Last Admin: 03/02/18 18:22 Dose: 100 mg Microbiology 02/28/18 01:00 Urine - Urine Clean Catch Urine Culture - Final Escherichia Coli ASSESSMENT/PLAN: Pt is a 37 yo F smoker with no signif PMHx presenting with 9/10 sharp intermittent non radiating R flank pain for a week , found to have mild hydronephrosis with 2mm distal ureteral stones with ruptured calyx w/out loculated urinoma Sepsis secondary to UTI In the setting of renal stones Presented with UA-Pyuria, WBC-13.9, tachycardia received zosyn, NS in ED Cont 1g Ceftriaxone daily (day 3) Cont NS @125 Stop iv15mg ketorolac- pt said not working percocet given x2- no more opiates Motrin 400Q4H Discharge home on PO ciprofloxacin x14 days- per ID- Dr Bolden Repeat UA- trace LE R hydronephrosis with nephrolithiasis now s/p stent palcement (02/28/18) 2mm distal ureteral stones with ruptured calyx w/out loculated urinoma Pain mx, NS, zosyn (received), ceftriaxone UA, Ucx- pending Urology consult- Dr Marti-apprec recs NS @125 Smoking hx Pt still having a lot of cravings on 14TD, requesting higher dose Nicotine patch 21TD FEN Ns@125 Monitor lytes Regular diet PPx- Continue heparin Dispo: Admit Med surg Dispo planning home in am Visit type - Emergency Visit Emergency Visit: Yes ED Registration Date: 02/28/18 Care time: The patient presented to the Emergency Department on the above date and was hospitalized for further evaluation of their emergent condition. - New Patient This patient is new to me today: No - Critical Care Critical Care patient: No - Discharge Referral Referred to [facility] Med P.C.: No
[2018-03-02] MEDS ORDERED: PT OWN MED DRAWER 7, Y5N ONE (08:34)
[2018-03-02] MEDS: PHENAZOPYRIDINE HCL 100 MG TABLET (FP) PO SCH ×3 (08:43→18:22)
[2018-03-02] MEDS: NICOTINE 21 MG/24 HOURS TOPICAL PATCH TD SCH (09:00)
[2018-03-02] MEDS ORDERED: cefTRIAXone SODIUM 1 GM VIAL ONE (10:03)
[2018-03-02] MEDS ORDERED: DEXTROSE 5%-WATER - 50 ML IVPB ONE (10:04)
[2018-03-02] MEDS: DEXTROSE 5%-NORMAL SALINE 1,000 ML IV SCH ×2 (10:06→18:27)
[2018-03-02] MEDS: CEFTRIAXONE 1 GM in DEXTROSE 5%-WATER - 50 ML IVPB SCH (10:08)
[2018-03-02] MEDS: ENOXAPARIN NA (PORCINE) 40 MG/0.4 ML DISP.SYRIN SQ SCH (10:09)
[2018-03-02] MEDS ORDERED: traMADol HCL 50 MG TABLET PO PRN (11:31)
[2018-03-02 14:09] LABS: URINE APPEARANCE CLEAR; URINE BILIRUBIN NEGATIVE (<2.0 mg/dL); URINE COLOR AMBER; URINE GLUCOSE (UA) NEGATIVE (NEGATIVE); URINE KETONE NEGATIVE (NEGATIVE); URINE LEUK ESTERASE TRACE (NEGATIVE); URINE NITRITE POSITIVE (NEGATIVE); URINE PROTEIN NEGATIVE (NEGATIVE); URINE UROBILINOGEN 4.0 E.U/dl mg/dL (0.2-1.0)
--- NOTE | 2018-03-02 14:12 | PN ---
Teaching Attending Note Name of Resident: Dacia Castle ATTENDING PHYSICIAN STATEMENT I saw and evaluated the patient. I reviewed the resident's note and discussed the case with the resident. I agree with the resident's findings and plan as documented. SUBJECTIVE:c/o intermittent flank cramping pain. and suprapubic discomfort on urination. denies CP, SOB,fever, chills, N/V/C/D, hematuria OBJECTIVE: Last Vital Signs Temp Pulse Resp BP Pulse Ox 98 F 68 18 135/97 98 03/02/18 01:00 03/02/18 01:00 03/02/18 01:00 03/02/18 01:00 03/01/18 21:00 General NAD Abdomen soft R flank tenderness and suprapubic tenderness. ND ASSESSMENT AND PLAN: 37 yo F with no significant pMHx here with Obstructive uropathy and UTI with pyelonephritis. 1. Obtstructive uropathy with nephrolithasis- s/p R ureteral stent placement . continues to have intermittent pain likely due to stent placement. re- assurance that pain is improving and some may be due to stent placement. try tramadol to see if alleviates with pain 2. sepsis due to pyelo- now having suprapubic discomfort. will repeat UA to evaluate if improved. awaiting official Culture report. on ceftriaxone day 3. will need 10 day course of abx. 3. Nicotine dependence- nicotine patch. counselled on risks assoc wtih continued nicotine abuse 4. DVT ppx- lovenox 5. will repeat UA and re-asses. possible d/c home later today.
[2018-03-02 14:17] LABS: EPI CELLS MODERATE /HPF (FEW)
--- NOTE | 2018-03-02 14:24 | DS ---
Physical Exam: SUBJECTIVE: Patient seen and examined. Pt still complaining of R flank pain despite tramadol. Repeat urine cx- no growth OBJECTIVE: Vital Signs Temp 98.3 F 03/03/18 13:39 Pulse 69 03/03/18 13:39 Resp 18 03/03/18 13:39 BP 103/62 03/03/18 13:39 Pulse Ox 97 03/03/18 10:00 Intake & Output 03/02/18 03/03/18 03/03/18 23:59 11:59 23:59 Intake Total 1100 1550 250 Balance 1100 1550 250 Intake: IV 1000 1500 250 D5-Ns - 1,000 ml @ 125 1500 250 mls/hr IV ASDIR ALLEN Rx#: [id number] Normal Saline - 1,000 ml 1000 @ 100 mls/hr IV ASDIR ALLEN Rx#:[id number] IVPB 100 50 Other: Voiding Method Toilet Toilet # Unmeasured Voids Void 3 2 5 Bowel Movement No No PHYSICAL EXAM GENERAL: The patient is awake, alert, and fully oriented, in no acute distress. LUNGS: Breath sounds equal, clear to auscultation bilaterally, HEART: Regular rate and rhythm, S1, S2 without murmur ABDOMEN: No suprapubic or R flank guarding on distracted exam EXTREMITIES: 2+ pulses, warm, well-perfused, no edema. NEUROLOGICAL: AAOx3 Normal speech, gait not observed. PSYCH: Emotional, tearful LABS Laboratory Last Values WBC 10.0 K/mm3 (4.0-10.0) 03/02/18 06:45 RBC 3.45 M/mm3 (3.60-5.2) L 03/02/18 06:45 Hgb 10.8 GM/dL (10.7-15.3) 03/02/18 06:45 Hct 31.6 % (32.4-45.2) L 03/02/18 06:45 MCV 91.5 fl (80-96) 03/02/18 06:45 MCH 31.3 pg (25.7-33.7) 03/02/18 06:45 MCHC 34.2 g/dl (32.0-36.0) 03/02/18 06:45 RDW 13.1 % (11.6-15.6) 03/02/18 06:45 Plt Count 400 K/MM3 (134-434) 03/02/18 06:45 MPV 8.9 fl (7.5-11.1) 03/02/18 06:45 Absolute Neuts (auto) 5.3 # 03/02/18 06:45 Neutrophils % 53.4 % (42.8-82.8) 03/02/18 06:45 Lymphocytes % 36.0 % (8-40) D 03/02/18 06:45 Monocytes % 8.6 % (3.8-10.2) 03/02/18 06:45 Eosinophils % 1.3 % (0-4.5) D 03/02/18 06:45 Basophils % 0.7 % (0-2.0) 03/02/18 06:45 Nucleated RBC % 0 % (0-0) 03/02/18 06:45 Sodium 140 mmol/L (136-145) 03/02/18 06:45 Potassium 3.8 mmol/L (3.5-5.1) 03/02/18 06:45 Chloride 108 mmol/L (98-107) H 03/02/18 06:45 Carbon Dioxide 29 mmol/L (21-32) 03/02/18 06:45 Anion Gap 3 (8-16) L 03/02/18 06:45 BUN 8 mg/dL (7-18) 03/02/18 06:45 Creatinine 0.6 mg/dL (0.55-1.02) 03/02/18 06:45 Creat Clearance w eGFR > 60 (>60) 03/02/18 06:45 Random Glucose 79 mg/dL (74-106) 03/02/18 06:45 Lactic Acid 0.8 mmol/L (0.0-2.0) 02/28/18 01:24 Calcium 8.3 mg/dL (8.5-10.1) L 03/02/18 06:45 Phosphorus 3.4 mg/dL (2.5-4.9) 03/02/18 06:45 Magnesium 1.7 mg/dL (1.8-2.4) L 03/02/18 06:45 Total Bilirubin 0.2 mg/dL (0.2-1.0) 03/02/18 06:45 AST 25 U/L (15-37) 03/02/18 06:45 ALT 54 U/L (12-78) 03/02/18 06:45 Alkaline Phosphatase 100 U/L (45-117) D 03/02/18 06:45 Total Protein 5.9 g/dl (6.4-8.2) L 03/02/18 06:45 Albumin 2.7 g/dl (3.4-5.0) L 03/02/18 06:45 Urine Color 03/02/18 13:30 Urine Appearance Clear 03/02/18 13:30 Urine pH 7.0 (5.0-8.0) D 03/02/18 13:30 Ur Specific [place] 1.010 (1.001-1.035) 03/02/18 13:30 Urine Protein Negative (NEGATIVE) 03/02/18 13:30 Urine Glucose (UA) Negative (NEGATIVE) 03/02/18 13:30 Urine Ketones Negative (NEGATIVE) 03/02/18 13:30 Urine Blood 2+ (NEGATIVE) H 03/02/18 13:30 Urine Nitrite Positive (NEGATIVE) 03/02/18 13:30 Urine Bilirubin Negative (<2.0 mg/dL) 03/02/18 13:30 Urine Urobilinogen 4.0 e.u/dl mg/dL (0.2-1.0) H 03/02/18 13:30 Ur Leukocyte Esterase Trace (NEGATIVE) 03/02/18 13:30 Urine WBC (Auto) 6 /hpf (3-5) 03/02/18 13:30 Urine RBC (Auto) 197 /hpf (0-3) 03/02/18 13:30 Ur Epithelial Cells Moderate /HPF (FEW) 03/02/18 13:30 Urine Bacteria Many /hpf (NONE SEEN) 02/28/18 03:15 Urine Mucus Moderate 02/28/18 03:15 Urine HCG, Qual Negative 02/28/18 01:00 HIV 1&2 Antibody Screen Negative 03/01/18 19:00 HIV P24 Antigen Negative 03/01/18 19:00 Microbiology 03/01/18 12:00 Urine - Urine Clean Catch Urine Culture - Final NO GROWTH OBTAINED 02/28/18 01:00 Urine - Urine Clean Catch Urine Culture - Final Escherichia Coli HOSPITAL COURSE: Date of Admission:02/28/18 Date of Discharge: 03/02/18 ASSESSMENT/PLAN: Pt is a 37 yo F smoker with no signif PMHx presenting with 9/10 sharp intermittent non radiating R flank pain for a week , found to have mild hydronephrosis with 2mm distal ureteral stones with ruptured calyx w/out loculated urinoma, now s/p stent placement (02/28/18). Pt presented to the ED with sepsis secondary to UTI, with renal stones. Initially with elevated WBC-13.9, tachycardia, Pyuria. White count normalized with treatment. Initial culture grew E coli that was pansensitive. Pt received iv fluids and 4 days of Iv ceftriaxone to be discharged home on oral ciprofloxacin for 14 days. Pt refused motrin for management of the pain. She received 3 doses of percocet and tramadol but was not tender on distracted examination She got an US of the bladder/pelvis and kidneys (02/28/18) that did not show any nephrolithiasis, hydronephrosis or obstructive uropathy. She is being discharged on motrin PRN for pain She received Nicotine patch 21TD She will follow up with Dr Marti as an outpatient for stent removal and follow up with her primary care physician Minutes to complete discharge: 40 Discharge Summary Reason For Visit: URINARY TRACT INFECTION, CALCULUS OF KIDNEY Current Active Problems Hydronephrosis (Acute) Kidney calculus (Acute) Leukocytosis (Acute) UTI (urinary tract infection) (Acute) Ureteral calculus (Acute) Condition: Stable - Instructions Diet, Activity, Other Instructions: You came in with Right flank pain and were found to have an obstructive stone You received antibiotic and had a stent inserted Repeat ultrasound did not show any stones or back flow to the kidneys We are sending you home on ciprofloxacin 500mg twice daily for 14 days Take the medication everyday as prescribed even if your symptoms resolved. We are giving you a urinary antiseptic medication- pyridium to help ease the discomfort when passing urine The medication will change the color of your urine Take it as prescribed You can continue to take 400mg of motrin every 6 hours for pain as needed. Take it with food and plenty of water. Do not exceed 2400mg of motrin a day Ensure you drink a lot of water to help you pass the stones more easily Smoking cessation is recommended for you Follow up with your urologist as an outpatient for stent removal Follow up with your primary care doctor in one week If you don't feel better, with worsening fevers and chills, increasing pain despite medication use, please return to the emergency room Referrals: Guilherme Marti MD [Staff Physician] - 1 Week Sondra Ames [Primary Care Provider] - 1 Week Disposition: HOME - Home Medications Comprehensive Discharge Medication List: Ambulatory Orders Diphenhydramine HCl [Benadryl Capsule -] 25 mg PO Q6H 11/26/14 Ibuprofen [Motrin -] 400 mg PO Q6H PRN tablet 03/02/18 Nicotine Patch [Nicoderm Patch -] 21 mg TD DAILY patch 03/02/18 Phenazopyridine HCl [Pyridium -] 100 mg PO PC #5 tablet 03/02/18 traMADol HCL [Ultram -] 50 mg PO Q4H PRN #30 tablet MDD 300 03/02/18 This patient is new to me today: No Emergency Visit: Yes ED Registration Date: 02/28/18 Care time: The patient presented to the Emergency Department on the above date and was hospitalized for further evaluation of their emergent condition. Critical Care patient: No - Discharge Referral Referred to [facility] No
--- NOTE | 2018-03-02 16:49 | CON.ID ---
Consult Consult Specialty:: infectious diseases Reason for Consultation:: pyelo flank pain - History of Present Illness Chief Complaint: rt sided flank pain History of Present Illness: 37 yo F no PMHx presenting admitted with R flank pain going on for a week. Pain is not relieved by sharri seltzer or laxative.There is associated fevers and nausea, but no vomiting. No associated dysuria, hematuria, no urinary frequency, or urgency. No abdominal pain, diarrhea,SOB, cough,or chest pain. Pt has had similar pain 4 years when she was 9 months that resolved spontaneously. Pt is a current smoker - 1/2 a pack /day and quit marijuana use recently. currently patient is still c/o of flank pain and says it is severe though clinically she looks comfortable patient underwent ct scan and was seen by surgery and underwent cystoscopy and stent placement patient has been on ceftriaxone since admission - History Source History Provided By: Patient Limitations to Obtaining History: No Limitations - Past Medical History Renal/: Yes: Renal Calculi ...LMP: 11/01/12 Infectious Disease: Yes: STD's (chlamydia treated in 1998) - Past Surgical History Past Surgical History: Yes: None - Alcohol/Substance Use Hx Alcohol Use: No History of Substance Use: reports: None - Smoking History Smoking history: Current every day smoker Have you smoked in the past 12 months: Yes Aproximately how many cigarettes per day: 8 - Social History Usual Living Arrangement: With Significant Other ADL: Independent History of Recent Travel: No Home Medications - Allergies Allergies/Adverse Reactions: Allergies Allergy/AdvReac Type Severity Reaction Status Date / Time No Known Allergies Allergy Verified 02/28/18 01:14 - Home Medications Home Medications: Ambulatory Orders Diphenhydramine HCl [Benadryl Capsule -] 25 mg PO Q6H 11/26/14 Ciprofloxacin [Cipro -] 500 mg PO Q12H #28 tablet 03/02/18 Ibuprofen [Motrin -] 400 mg PO Q6H PRN tablet 03/02/18 Nicotine Patch [Nicoderm Patch -] 21 mg TD DAILY patch 03/02/18 Phenazopyridine HCl [Pyridium -] 100 mg PO PC #5 tablet 03/02/18 Review of Systems - Review of Systems Constitutional: reports: No Symptoms Eyes: reports: No Symptoms HENT: reports: No Symptoms Neck: reports: No Symptoms Cardiovascular: reports: No Symptoms Respiratory: reports: No Symptoms Gastrointestinal: reports: No Symptoms Genitourinary: reports: Flank Pain (rt) Musculoskeletal: reports: No Symptoms Integumentary: reports: No Symptoms Neurological: reports: No Symptoms Endocrine: reports: No Symptoms Hematology/Lymphatic: reports: No Symptoms Psychiatric: reports: No Symptoms Physical Exam Vital Signs: Vital Signs Temperature 98 F 03/02/18 14:22 Pulse Rate 68 03/02/18 14:22 Respiratory Rate 19 03/02/18 14:22 Blood Pressure 122/72 03/02/18 14:22 O2 Sat by Pulse Oximetry (%) 98 03/01/18 21:00 Constitutional: Yes: Well Nourished, Calm, Mild Distress Eyes: Yes: Conjunctiva Clear Neck: Yes: Supple Cardiovascular: Yes: Regular Rate and Rhythm Respiratory: Yes: Regular, CTA Bilaterally Gastrointestinal: Yes: Normal Bowel Sounds, Soft Renal/: Yes: CVA Tenderness - Right Musculoskeletal: Yes: WNL Extremities: Yes: WNL Neurological: Yes: Alert, Oriented Psychiatric: Yes: Alert, Oriented Labs: CBC, BMP 03/02/18 06:45 03/02/18 06:45 Imaging - Results Cat Scan: Report Reviewed, Image Reviewed Assessment/Plan Pt is a 37 yo F smoker with no signif PMHx presenting with 9/10 sharp intermittent non radiating R flank pain for a week , found to have mild hydronephrosis with 2mm distal ureteral stones with ruptured calyx w/out loculated urinoma Sepsis secondary to UTI R hydronephrosis with nephrolithias Smoking hx post stent placement patient now has normal wbc still has pain though plan if patient remains stable can switch to oral abx tomorrow patient will need it for 2 weeks cipro 500 mg bid awaiting repeat cx
[2018-03-02] MEDS: IBUPROFEN 400 MG TABLET (FP) PO PRN (17:15)
[2018-03-02] MEDS: MELATONIN 5 MG TABLETS PO PRN (22:09)
[2018-03-02] MEDS ORDERED: traMADol HCL 50 MG TABLET PO ONE (23:23)
[2018-03-03] MEDS: DEXTROSE 5%-NORMAL SALINE 1,000 ML IV SCH (02:26)
[2018-03-03] MEDS ORDERED: DEXTROSE 5%-WATER - 50 ML IVPB ONE (09:54)
[2018-03-03] MEDS ORDERED: cefTRIAXone SODIUM 1 GM VIAL ONE (09:54)
[2018-03-03] MEDS ORDERED: PT OWN MED DRAWER 7, Y5N ONE (09:54)
[2018-03-03] MEDS: CEFTRIAXONE 1 GM in DEXTROSE 5%-WATER - 50 ML IVPB SCH (10:02)
[2018-03-03] MEDS: PHENAZOPYRIDINE HCL 100 MG TABLET (FP) PO SCH (10:04)
[2018-03-03] MEDS: ENOXAPARIN NA (PORCINE) 40 MG/0.4 ML DISP.SYRIN SQ SCH (10:04)
[2018-03-03] MEDS: NICOTINE 21 MG/24 HOURS TOPICAL PATCH TD SCH (10:05)
[2018-03-03] MEDS: IBUPROFEN 400 MG TABLET (FP) PO PRN ×2 (10:56→18:07)
--- NOTE | 2018-03-03 14:01 | PN ---
Teaching Attending Note Name of Resident: Dacia Castle ATTENDING PHYSICIAN STATEMENT I saw and evaluated the patient. I reviewed the resident's note and discussed the case with the resident. I agree with the resident's findings and plan as documented. SUBJECTIVE:c/o intractable R flank pain not improving with motrin or tramadol. said the pain is unbareable and can not eat or sleep due to the pain. very distressed that a stent was left inside her. states she thought she would stay in the hospital until the stent would be removed. OBJECTIVE: Last Vital Signs Temp Pulse Resp BP Pulse Ox 98.3 F 69 18 103/62 97 03/03/18 13:39 03/03/18 13:39 03/03/18 13:39 03/03/18 13:39 03/03/18 10:00 General mild distress due to pain. tearful on exam Abdomen soft R flank tenderness and suprapubic tenderness. ND ASSESSMENT AND PLAN: 37 yo F with no significant pMHx here with Obstructive uropathy and UTI with pyelonephritis. 1. Obtstructive uropathy with nephrolithasis- s/p R ureteral stent placement . continues to have intermittent pain. very upset as she states she did not fully understand the plan. said the pain is worse than presentation. will order Renal u/s to evaluate if there is now an obstructing stone and/or worsening hydronephrosis. ISTOP checked and has no narcotics prescribed in the past. will give percocet and monitor for improvement. re-assurance given that stents are usually left in for a period of time and then removed. that she has appt with urology next week which she needs to keep and he will evaluate if stent can then be removed. 2. sepsis due to pyelo-repeat UA from yesterday is showing clearing infection. repeat Ucx with no growth. initial Cx huber sensitive Ecoli. on ceftriaxone day 4. will switch to cipro po on discharge and complete 2 week course of abx, 3. Nicotine dependence- nicotine patch. counselled on risks assoc wtih continued nicotine abuse 4. DVT ppx- lovenox 5. will monitor response to percocet. may need short course of opiates. pt admits to low pain threshold. will repeat u/s possible d/c later today pending on results Istop Reference #: [id number]
--- NOTE | 2018-03-03 15:03 | PN ---
Progress Note, Physician History of Present Illness: patient stable still having a lot of pain in the rt flank - Current Medication List Current Medications: Active Medications Acetaminophen (Tylenol -) 650 mg PO Q4H PRN PRN Reason: PAIN LEVEL 1-5 Last Admin: 03/01/18 05:40 Dose: 650 mg Acetaminophen (Tylenol -) 325 mg PO ONCE ONE Stop: 03/03/18 14:47 Enoxaparin Sodium (Lovenox -) 40 mg SQ DAILY [facility] Last Admin: 03/03/18 10:04 Dose: 40 mg Ceftriaxone Sodium 1 gm/ (Dextrose) 50 mls @ 100 mls/hr IVPB DAILY [facility] Last Admin: 03/03/18 10:02 Dose: 100 mls/hr Ibuprofen (Motrin -) 400 mg PO Q6H PRN PRN Reason: FEVER Last Admin: 03/02/18 17:15 Dose: 400 mg Melatonin (Melatonin) 10 mg PO HS PRN PRN Reason: INSOMNIA Last Admin: 03/02/18 22:09 Dose: 10 mg Nicotine (Nicoderm Patch -) 21 mg TD DAILY [facility] Last Admin: 03/03/18 10:05 Dose: 21 mg Ondansetron HCl (Zofran Injection) 4 mg IVPUSH Q6H PRN PRN Reason: NAUSEA Oxycodone HCl (Roxicodone -) 5 mg PO ONCE ONE Stop: 03/03/18 14:47 Oxycodone/Acetaminophen (Percocet 5/325 -) 1 combo PO ONCE ONE Stop: 03/03/18 14:07 - Objective Vital Signs: Vital Signs Temperature 98.3 F 03/03/18 13:39 Pulse Rate 69 03/03/18 13:39 Respiratory Rate 18 03/03/18 13:39 Blood Pressure 103/62 03/03/18 13:39 O2 Sat by Pulse Oximetry (%) 97 03/03/18 10:00 Constitutional: Yes: Calm, Mild Distress Cardiovascular: Yes: Regular Rate and Rhythm Respiratory: Yes: Regular, CTA Bilaterally Gastrointestinal: Yes: Normal Bowel Sounds, Soft Genitourinary: Yes: CVA Tenderness - Right Musculoskeletal: Yes: WNL Extremities: Yes: Deformity Neurological: Yes: Alert, Oriented Psychiatric: Yes: Alert, Oriented Labs: CBC, BMP 03/02/18 06:45 03/02/18 06:45 Assessment/Plan Pt is a 37 yo F smoker with no signif PMHx presenting with 9/10 sharp intermittent non radiating R flank pain for a week , found to have mild hydronephrosis with 2mm distal ureteral stones with ruptured calyx w/out loculated urinoma Sepsis secondary to UTI R hydronephrosis with nephrolithias Smoking hx post stent placement patient now has normal wbc still has pain though plan u/s of the kidney continue abx once we have the u/s then we will decide further mgmt patient doing well
[2018-03-03] MEDS ORDERED: ACETAMINOPHEN 325 MG TABLET (FP) PO ONE (15:15)
[2018-03-03] MEDS ORDERED: oxyCODONE HCL 5 MG TABLET PO ONE (15:15)
[2018-03-03 18:45] VITALS: BP 138/91; PULSE 71; TEMP 97.6
== END 2018-03-03 19:14 | disposition home or self-care (01) | DRG 710 ==
LOC: JER 01:06 → JERBED 05:29 → J5S 06:47
PROVIDERS: ADMIT Internal Medicine; ATTEND Internal Medicine
PROC: 0T7B8DZ Dilation of Bladder with Intraluminal Device, Via Natural or Artificial Opening Endoscopic (ICD-10-PCS; 2018-02-28)
PROC: 0T738DZ Dilation of Right Kidney Pelvis with Intraluminal Device, Via Natural or Artificial Opening Endoscopic (ICD-10-PCS; 2018-02-28)
PROC: BT1DZZZ Fluoroscopy of Right Kidney, Ureter and Bladder (ICD-10-PCS; 2018-02-28)
PROC: 0T768DZ Dilation of Right Ureter with Intraluminal Device, Via Natural or Artificial Opening Endoscopic (ICD-10-PCS; principal; 2018-02-28 08:14)
DX: A41.9 Sepsis, unspecified organism (principal); N39.0 Urinary tract infection, site not specified; N13.2 Hydronephrosis with renal and ureteral calculous obstruction; D72.829 Elevated white blood cell count, unspecified; F17.210 Nicotine dependence, cigarettes, uncomplicated
CPT/HCPCS: 36415; 74176; 76000-TC-FY; 76775-TC; 76856-TC; 80048; 80053; 81003; 81015; 83605; 83735; 84100; 84703; 85025; 87086; 87186; 87389; 93005; 93010; 94760; 99284-25; J7030

== ENCOUNTER 2018-09-17 21:50 | Inpatient (IN) | payer OTHER ==
--- NOTE | 2018-09-17 22:34 | PDOC ---
History of Present Illness - General Chief Complaint: Pain, Acute Stated Complaint: RIGHT SIDE PAIN Time Seen by Provider: 09/17/18 22:31 - History of Present Illness Initial Comments: 38yo F with PMH of pyelonephritis presenting with R. flank pain and bright red blood per rectum. Patient states this flank pain feels similar to the pain she had in February when she was admitted for pyelonephritis. She has not been able to follow-up with her urologist, Dr. Marti, since she was discharged. Patient reports pain related to her stent, frequency, and urine smelling metallic, but denies dysuria or hematuria. She has controlled the pain at home with tylenol PM which she last took today at 11am. The pain is rated 8/10 and described as sharp. Endorses three bowel movements and one today with bright red blood. She has never had this happen before, does not have a GI doctor, and has never had a colonoscopy. Denies history of GI bleed, ulcers, or hemorrhoids. Patient also states she is four weeks present per a home test taken about one week ago. This is not a desired . Denies fevers, chills, chest pain, or shortness of breath. Past History - Past Medical History Allergies/Adverse Reactions: Allergies Allergy/AdvReac Type Severity Reaction Status Date / Time No Known Allergies Allergy Verified 09/17/18 21:55 Home Medications: Ambulatory Orders Ibuprofen [Motrin -] 400 mg PO QID 09/18/18 Anemia: Yes Asthma: No Cancer: No Cardiac Disorders: No COPD: No Diabetes: No HTN: No Seizures: No Thyroid Disease: No - Immunization History Immunization Up to Date: Yes - Suicide/Smoking/Psychosocial Hx Smoking Status: Yes Smoking History: Never smoked Have you smoked in the past 12 months: Yes Number of Cigarettes Smoked Daily: 8 'Breaking Loose' booklet given: 02/28/18 Hx Alcohol Use: No Drug/Substance Use Hx: No Substance Use Type: None Hx Substance Use Treatment: No Review of Systems - Review of Systems Comments:: Constitutional: no fever, no chills HEENT: no throat pain, no dysphagia Cardiovascular: no chest pain, no palpitations Respiratory: no cough, no shortness of breath Gastrointestinal: no abdominal pain, +BRBPR Genitourinary: no dysuria, +frequency Musculoskeletal: no myalgia, no arthralgia Skin: no rash, no itching Neurologic: no headache, no dizziness *Physical Exam - Vital Signs Last Vital Signs Temp Pulse Resp BP Pulse Ox 98.0 F 84 18 128/89 99 09/17/18 21:52 09/17/18 21:52 09/17/18 21:52 09/17/18 21:52 09/17/18 21:52 - Physical Exam Comments: General: Awake, alert, and fully oriented, in no acute distress Head: No signs of trauma Eyes: EOMI, sclera anicteric ENT: Moist mucus membranes Neck: Normal ROM, supple Lungs: Lungs clear, Normal breath sounds Cardio: Regular rhythm, S1 and S2 present Abdomen: Soft, nontender. No guarding, no rebound, no masses. +R. CVA tenderness. No L. CVA tenderness Extremities: Normal range of motion, Distal pulses present SKIN: Warm, Dry, normal turgor Neurologic: Cranial nerves II through XII grossly intact. Normal speech Moderate Sedation - Procedure Monitoring Vital Signs: Procedure Monitoring Vital Signs Temperature 98.0 F 09/17/18 21:52 Pulse Rate 84 09/17/18 21:52 Respiratory Rate 18 09/17/18 21:52 Blood Pressure 128/89 09/17/18 21:52 O2 Sat by Pulse Oximetry (%) 99 09/17/18 21:52 ED Treatment Course - LABORATORY CBC & Chemistry Diagram: 09/18/18 00:00 09/18/18 00:00 Medical Decision Making - Medical Decision Making 38yo F with PMH of pyelonephritis presenting with R. flank pain and bright red blood per rectum. -Labs -1g Ofirmev, 1L NS -TVUS -Renal US to assess for hydronephrosis 09/17/18 23:52 Patient requesting something stronger than tylenol after she just got it. I responded that we will reassess. 09/18/18 00:25 Patient upset, raising her voice and tearing. Reports that people are rude to her and her catheter is burning 09/18/18 01:31 Ultrasound-guided IV inserted WBC=15.3, normal hemoglobin, unremarkable electolytes UA shows 3+ LE, 1165 Urine WBCs, 3+ blood, however moderate epithelial cells indicates contamination of sample B-hcg= TVUS: "There is a single intrauterine gestation with measurements corresponding to 6 weeks. A heart rate could not be obtained. It is possible that this is a failed gestation. However, follow up recommended to make sure that the inability to obtain a heart rate is not technical in nature. Normal right ovary with positive Doppler blood flow. The left ovary could not be evaluated since the patient asked to ON the exam because of pain" Kidney: "Right kidney: Right kidney measures 11.6 cm x 4.4 cm. There is a nonobstructing midpole right renal stone. There is a stent in place. No right hydronephrosis. The left kidney measures 11.2 cm x 5.3 cm. No left renal stone or hydronephrosis." 09/18/18 02:18 Patient reports itching. This is after she received morphine and ceftriaxone. However, patient reports no allergies, but does get hives occasionally. Urticarial rash present on right upper anterior thigh. Benadryl 25mg po ordered 09/18/18 02:[address] Fuller who accepted patient with admission 09/18/18 03:02 Patient reports continuing to feel itchy with urticarial rash spread to upper extremities. Denies itchy throat, trouble breathing, or shortness of breath. Benadryl 25mg IV ordered 09/18/18 03:58 *DC/Admit/Observation/Transfer Diagnosis at time of Disposition: Pyelonephritis - Discharge Dispostion Condition at time of disposition: Guarded Decision to Admit order: Yes - Referrals - Patient Instructions - Post Discharge Activity
[2018-09-17] MEDS ORDERED: ACETAMINOPHEN 1000 MG/100 ML VIAL (NON FORMULARY) IVPB ONE (23:37)
[2018-09-17] MEDS ORDERED: SODIUM CHLORIDE 1,000 ML IV STA (23:37)
[2018-09-18] MEDS ORDERED: ACETAMINOPHEN INJECTION 100 ML IVPB ONE (00:04)
[2018-09-18 00:11] LABS: BASO % 0.8 % (0-2.0); EOS % 0.6 % (0-4.5); HEMOGLOBIN 12.6 GM/dL (10.7-15.3); LYMPH % 26.3 % (8-40); MCH 31.4 pg (25.7-33.7); MCHC 35.1 g/dl (32.0-36.0); MEAN CELL VOLUME 89.5 fl (80-96); MEAN PLT VOLUME 8.1 fl (7.5-11.1); MONO % 5.5 % (3.8-10.2); NEUT % 66.8 % (42.8-82.8); PLATELET COUNT 471 K/MM3 (134-434); RBC 4.02 M/mm3 (3.60-5.2); RDW 13.2 % (11.6-15.6); WHITE BLOOD COUNT 15.3 K/mm3 (4.0-10.0)
[2018-09-18 00:15] LABS: URINE APPEARANCE CLOUDY; URINE BILIRUBIN NEGATIVE (<2.0 mg/dL); URINE COLOR YELLOW; URINE GLUCOSE (UA) NEGATIVE (NEGATIVE); URINE KETONE NEGATIVE (NEGATIVE); URINE LEUK ESTERASE 3+ (NEGATIVE); URINE NITRITE POSITIVE (NEGATIVE); URINE PROTEIN 2+ (NEGATIVE); URINE UROBILINOGEN NEGATIVE mg/dL (0.2-1.0)
[2018-09-18 00:22] LABS: EPI CELLS MODERATE /HPF (FEW); URINE BACTERIA MODERATE /hpf (NONE SEEN); URINE MUCUS RARE
[2018-09-18] MEDS ORDERED: CEFTRIAXONE 1,000 MG in DEXTROSE 5%-WATER - 50 ML IVPB ONE (00:55)
--- NOTE | 2018-09-18 01:03 | PDOC ---
Attending Attestation - Resident Resident Name: Pretty Love - ED Attending Attestation I have performed the following: I have examined & evaluated the patient, The case was reviewed & discussed with the resident, I agree w/resident's findings & plan, Exceptions are as noted - HPI HPI: 09/18/18 00:59 38 F with h/o pyelonephritis, infected kidney stone s/p R ureteral stent, presenting with R flank pain x 2 weeks, associated with dysuria and foul smelling urine. Pt had R ureteral stent placed 02/22 for infected stone but has not followed up with her urologist since then due to personal issues. Pt notes that this pain is similar to her previous infected stone. Pt also notes that she has been having blood streaked stools. Denies any dark tarry stools or profuse rectal bleeding. Pt denies CP/SOB. Denies F/C. Pt also reports positive home UPT last week. LMP was approx 4 weeks ago. - Physicial Exam PE: 09/18/18 01:04 "GENERAL: Awake, alert, and fully oriented, in no acute distress. HEAD: No signs of trauma EYES: PERRLA, EOMI, sclera anicteric, conjunctiva clear ENT: Auricles normal inspection, hearing grossly normal, nares patent, oropharynx clear without exudates. Moist mucosa NECK: Nontender, no stepoffs, Normal ROM, supple, no lymphadenopathy, JVD, or masses LUNGS: Breath sounds equal, clear to auscultation bilaterally. No wheezes, and no crackles HEART: Regular rate and rhythm, normal S1 and S2, no murmurs, rubs or gallops ABDOMEN: Soft, nontender, normoactive bowel sounds. No guarding, no rebound. No masses BACK: + R CVAT EXTREMITIES: Normal range of motion, no edema. No clubbing or cyanosis. No cords, erythema, or tenderness NEUROLOGICAL: Cranial nerves II through XII intact. 5/5 strength and sensation in all extremities, Normal speech, normal gait, normal cerebellar function SKIN: Warm, Dry, normal turgor, no rashes or lesions noted. RECTAL: brown stool, no blood, no melena - Medical Decision Making 09/18/18 01:04 38 F with h/o infected R kidney stone s/p R ureteral stenting, now presenting with recurrent R flank pain and dysuria. Concerning for possible recurrent kidney stone vs pyelo vs infected stone. Pt also reports + UPT at home. Will need to r/o ectopic. - Labs, UA, UPT - TVUS, Renal US - IVF, tylenol - Urology c/s 09/18/18 01:20 UA consistent with UTI, suspect pyelo given R CVAT pt's UPT positive TVUS shows IUP @ 6 weeks with no visible FHR Renal US with no pyelo, stent in place Will tx as pyelonephritis Given + UPT, will need IV abx 09/18/18 01:33 Pt reports persistent pain after tylenol Discussed with pt risks of narcotic pain medication during . Pt states that she is absolutely not keeping this child, as she has 2 autistic children at home. Pt requests morphine.
[2018-09-18 01:11] LABS: ALBUMIN 3.8 g/dl (3.4-5.0); ALK PHOS 78 U/L (45-117); ANION GAP 9 MMOL/L (8-16); BILIRUBIN,TOTAL 0.3 mg/dL (0.2-1); BLOOD UREA NITROGEN 10 mg/dL (7-18); CALCIUM 8.8 mg/dL (8.5-10.1); CHLORIDE 105 mmol/L (98-107); CO2 23 mmol/L (21-32); CREATININE 0.5 mg/dL (0.55-1.3); GLUCOSE,RANDOM 88 mg/dL (74-106); SGOT/AST 14 U/L (15-37); SGPT/ALT 20 U/L (13-61); SODIUM 137 mmol/L (136-145); TOT PROT 7.4 g/dl (6.4-8.2)
[2018-09-18] MEDS ORDERED: morphine CARPU-JECT 4 MG/1 ML DISP.SYRIN IVPUSH ONE (01:34)
[2018-09-18] MEDS ORDERED: CEFTRIAXONE 1 GM/50 ML BAG ONE (02:12)
[2018-09-18] MEDS ORDERED: morphine SULFATE 4 MG/ML VIAL ONE (02:13)
[2018-09-18] MEDS ORDERED: diphenhydrAMINE HCL 25 MG CAPSULE (FP) PO ONE ×2 (02:47→02:49)
--- NOTE | 2018-09-18 03:53 | PN ---
Teaching Attending Note Name of Resident: Aiden Sanchez ATTENDING PHYSICIAN STATEMENT I saw and evaluated the patient. I reviewed the resident's note and discussed the case with the resident. I agree with the resident's findings and plan as documented. SUBJECTIVE: Seen and examined; please refer to resident note for further historical information. Briefly, this is a 38 y/o female presenting with a CC of R-flank pain for over 1 week that has been getting progressively worse. She also states she had BRBPR but had a negative fecal occult blood done in the ER (and + blood on UA which could be construed). She has pyelonephritis and was seen by Dr. Bolden and treated with ceftriaxone 6 months ago and had a stent placed by Dr. Marti but had no followup with him. Found to be 6 weeks preg but with no heart tones. She intends on getting an and does not wish to keep the . She has a history of R-hydro with the aforementioned UTI that caused the stent to be placed due to calculus; similar sx this time. US done in the ER shows nonobstructing R-sided stone with no hydro. Admit to medicine for pyelonephritis. 10 sys ROS done and negative aside from HPI PMH and PSH reviewed FH asked and noncontributory Socially she is a former smoker and denies alcohol and drug abuse Medication list reviewed; pending reconciliation OBJECTIVE: VS, labs, imaging reviewed NAD, AAO, resting in bed NC AT EOMI PERRLA RRR s1/2 no mgr Lungs CTAB w/ sym exp R-flank pain; NT ND +BS CN2-12 wnl, no fnd Labs reviewed; WBC 15 with plts 471. UA with +3 LE and +Nitrite with 1165 wbc and mod bacteria Prelim TVU and LOURDES reviewed; ~6 weeks but no HR so ? failed gestation. LOURDES w/ nonobstructing stone Blood and urine cx pending ASSESSMENT AND PLAN: Patient presents with R-sided flank pain (history of R-pyelo s/p stenting due to hydro/stone who had no followup with Dr. Marti) and positive UA suspicious for pyelo; no obstruction seen on imaging. Complicating this is a ~6 week that is questionably viable. Hemodynamics stable. 1) Acute Pyelonephritis with prior instrumentation -Evidenced by WBC count and clinical exam; LOURDES done as CT contraindicated with potentially nonviable and it does not show obstruction -Given stenting will consult Dr. Marti. She has been seen by Dr. Bolden in the past. Prior cultures with jose Mcgee. Covering with Ceftriaxone -Followup cx; trend CBC -Keep NPO in case procedure tomorrow with LR@100cc/hr for maintenance 2) 6 Weeks Preg -US results prelim noted; followup indicated -Consulting OBGYN; further management per their service. Avoid teratogenic compounds. APAP for pain control. 3) Hx Tobacco Abuse -Noted 4) BRBPR -Hb higher than it was last time; furthermore negative FOBT. -Could have been from blood in urine as 3+ on UA -Trend Hb; consider repeating FOBT. Monitor for further episodes. FENA -LR@100 -PRN replete -Regular diet -As tolerated Full Code
--- NOTE | 2018-09-18 04:29 | HP ---
<Aiden Sanchez - Last Filed: 09/18/18 05:53> CHIEF COMPLAINT: right flank pain, bloody bowel movement PCP: HISTORY OF PRESENT ILLNESS: 38 yo female without any major past medical history other than renal stone with stent placement in February 2018 admitted for right flank pain, foul smelling urine , found to have UTI and likely Pyelonephritis. She states the pain began to develop a few weeks ago but has gotten worse. She states that she did not have a bowel movement for a few days but then yesterday prior to arrival to the ED, she had three bloody bowel movements. She has had hemorrhoids in the past and states this was different and that there was some blood in the water. Of note she has not been able to follow up with Urology since her stent was placed as she has two autistic children and has very difficult time finding care for them which prevents her from caring for herself often times. She expresses that she thinks the stent is likely infected as she did not have it removed when she was supposed to. She denies any fevers or chills. ER course was notable for: (1) TVUS noted with 6 week gestation without detected heartbeat, HCG , Renal US noted (2) WBC count 15.3 (3) UA with 3+ LE, 3+blood, WBC 1165 Recent Travel: none PAST MEDICAL HISTORY: No other PMH PAST SURGICAL HISTORY: Right ureteral stent in February 2018, still in place Social History: Smokin-10 cigarettes per day Alcohol: Occasional alcohol use Drugs: Former marijuana use, does not use now with kids Family History: Allergies No Known Allergies Allergy (Verified 09/17/18 21:55) HOME MEDICATIONS: Home Medications Medication Instructions Recorded Ibuprofen [Motrin -] 400 mg PO QID 09/18/18 REVIEW OF SYSTEMS CONSTITUTIONAL: Absent: fever, chills, diaphoresis, generalized weakness, malaise, loss of appetite, weight change HEENT: Absent: rhinorrhea, nasal congestion, throat pain, throat swelling, difficulty swallowing, mouth swelling, ear pain, eye pain, visual changes CARDIOVASCULAR: Absent: chest pain, syncope, palpitations, irregular heart rate, lightheadedness , peripheral edema RESPIRATORY: Absent: cough, shortness of breath, dyspnea with exertion, orthopnea, wheezing, stridor, hemoptysis GASTROINTESTINAL: hematochezia Absent: abdominal pain, abdominal distension, nausea, vomiting, diarrhea, constipation, melena, GENITOURINARY: flank pain Absent: dysuria, frequency, urgency, hesitancy, hematuria, genital pain MUSCULOSKELETAL: Absent: myalgia, arthralgia, joint swelling, back pain, neck pain SKIN: Absent: rash, itching, pallor HEMATOLOGIC/IMMUNOLOGIC: Absent: easy bleeding, easy bruising, lymphadenopathy, frequent infections ENDOCRINE: Absent: unexplained weight gain, unexplained weight loss, heat intolerance, cold intolerance NEUROLOGIC: Absent: headache, focal weakness or paresthesias, dizziness, unsteady gait, seizure, mental status changes, bladder or bowel incontinence PSYCHIATRIC: Absent: anxiety, depression, suicidal or homicidal ideation, hallucinations. PHYSICAL EXAMINATION Vital Signs - 24 hr 09/17/18 21:52 Temperature 98.0 F Pulse Rate 84 Respiratory 18 Rate Blood Pressure 128/89 O2 Sat by Pulse 99 Oximetry (%) GENERAL: A&O, no acute distress HEAD: Normocephalic, atraumatic. EYES: PERRL, no scleral icterus EARS, NOSE, THROAT: oropharynx clear without exudates. Moist mucous membranes. NECK: supple without lymphadenopathy LUNGS: CTA b/l, no crackles or wheezes HEART: Regular rate and rhythm, normal S1 and S2 without murmur ABDOMEN: Soft, nontender to palpation, normoactive bowel sounds MUSCULOSKELETAL: No bony deformities or tenderness. EXTREMITIES: 2+ pulses, warm, well-perfused. No peripheral edema. NEUROLOGICAL: Cranial nerves II-XII grossly intact. Normal speech. PSYCHIATRIC: Cooperative. Good eye contact. Appropriate mood and affect. SKIN: Warm, dry, no rashes or lesions noted Laboratory Results - last 24 hr 09/17/18 09/18/18 09/18/18 00:25 00:00 00:00 WBC 15.3 H RBC 4.02 Hgb 12.6 Hct 36.0 MCV 89.5 MCH 31.4 MCHC 35.1 RDW 13.2 Plt Count 471 H MPV 8.1 Absolute Neuts (auto) 10.2 H Neutrophils % 66.8 D Lymphocytes % 26.3 D Monocytes % 5.5 Eosinophils % 0.6 Basophils % 0.8 Nucleated RBC % 0 Sodium Potassium Chloride Carbon Dioxide Anion Gap BUN Creatinine Creat Clearance w eGFR Random Glucose Calcium Total Bilirubin AST ALT Alkaline Phosphatase Total Protein Albumin Beta HCG, Quant Urine Color Yellow Urine Appearance Cloudy Urine pH 6.0 Ur Specific [place] 1.017 Urine Protein 2+ H Urine Glucose (UA) Negative Urine Ketones Negative Urine Blood 3+ H Urine Nitrite Positive Urine Bilirubin Negative Urine Urobilinogen Negative Ur Leukocyte Esterase 3+ H Urine WBC (Auto) 1165 Urine RBC (Auto) 554 Ur Epithelial Cells Moderate Urine Bacteria Moderate Urine Mucus Rare Stool Occult Blood Negative Blood Type Antibody Screen 09/18/18 09/18/18 00:00 00:00 WBC RBC Hgb Hct MCV MCH MCHC RDW Plt Count MPV Absolute Neuts (auto) Neutrophils % Lymphocytes % Monocytes % Eosinophils % Basophils % Nucleated RBC % Sodium 137 Potassium 4.0 Chloride 105 Carbon Dioxide 23 Anion Gap 9 BUN 10 Creatinine 0.5 L Creat Clearance w eGFR > 60 Random Glucose 88 Calcium 8.8 Total Bilirubin 0.3 AST 14 L ALT 20 Alkaline Phosphatase 78 Total Protein 7.4 Albumin 3.8 Beta HCG, Quant 44000.2 Urine Color Urine Appearance Urine pH Ur Specific Duarte Urine Protein Urine Glucose (UA) Urine Ketones Urine Blood Urine Nitrite Urine Bilirubin Urine Urobilinogen Ur Leukocyte Esterase Urine WBC (Auto) Urine RBC (Auto) Ur Epithelial Cells Urine Bacteria Urine Mucus Stool Occult Blood Blood Type O POSITIVE Antibody Screen Negative ASSESSMENT/PLAN: 38 yo female without any major past medical history other than renal stone with stent placement in February 2018 admitted for right flank pain, foul smelling urine , found to have UTI and likely Pyelonephritis. Pyelonephritis -Likely secondary to stent which was not removed -WBC count 15.3 -UA noted with 2+ prot, 3+ blood, 3+ LE, WBC 1165, RBC 554 -Urology consult for probably stent removal -NPO for possible procedure -LR @ 100 cc/hr -GC pending, HIV pending -Rocephin 2 gm IV Daily Bleeding per rectum -FOBT negative, H/H stable -Trend CBC, repeat FOBT for verification 6 Weeks -will consult utilization management nurse -TVUS consistent with 6 week gestation, no heartbeat felt DVT Prophylaxis -Lovenox 40 mg SQ Daily FEN -Fluids: none -Electrolytes: No electrolyte abnormalities, BMP in AM -Nutrition: Regular Diet Disposition Med/Surg Visit type - Emergency Visit Emergency Visit: Yes ED Registration Date: 09/18/18 Care time: The patient presented to the Emergency Department on the above date and was hospitalized for further evaluation of their emergent condition. - New Patient This patient is new to me today: Yes Date on this admission: 09/18/18 - Critical Care Critical Care patient: No <Doc Fuller - Last Filed: 09/27/18 20:35> Seen and examined;agree with all the above aside form as edited by me in my own note. Thank you. Was present for all vital parts of encounter; plan discussed with me. Agree with above as documented by the resident.
[2018-09-18] MEDS ORDERED: PT OWN MED DRAWER 7, Y5N ONE (08:05)
[2018-09-18] MEDS: MORPHINE SULFATE 2 MG/ML VIAL IVPUSH PRN ×3 (08:08→21:14)
--- NOTE | 2018-09-18 08:41 | EKG ---
Test Reason : Blood Pressure : / mmHG Vent. Rate : 072 BPM Atrial Rate : 072 BPM P-R Int : 148 ms QRS Dur : 076 ms QT Int : 408 ms P-R-T Axes : 023 000 006 degrees QTc Int : 446 ms NORMAL SINUS RHYTHM NORMAL ECG WHEN COMPARED WITH ECG OF 28-FEB-2018 06:18, NO SIGNIFICANT CHANGE WAS FOUND Confirmed by LEFTY DUMONT MD ([id number]) on 09/18/2018 8:41:19 AM Referred By: Confirmed By:LEFTY DUMONT MD
[2018-09-18 08:44] LABS: BASO % 0.8 % (0-2.0); EOS % 0.9 % (0-4.5); HEMATOCRIT 35.2 % (32.4-45.2); HEMOGLOBIN 12.3 GM/dL (10.7-15.3); LYMPH % 32.1 % (8-40); MCH 31.6 pg (25.7-33.7); MCHC 34.9 g/dl (32.0-36.0); MEAN CELL VOLUME 90.5 fl (80-96); MEAN PLT VOLUME 8.4 fl (7.5-11.1); MONO % 5.5 % (3.8-10.2); NEUT % 60.7 % (42.8-82.8); PLATELET COUNT 447 K/MM3 (134-434); RBC 3.89 M/mm3 (3.60-5.2); RDW 13.2 % (11.6-15.6); WHITE BLOOD COUNT 11.5 K/mm3 (4.0-10.0)
[2018-09-18 09:15] LABS: ALBUMIN 3.6 g/dl (3.4-5.0); ALK PHOS 73 U/L (45-117); ANION GAP 9 MMOL/L (8-16); BILIRUBIN,TOTAL 0.3 mg/dL (0.2-1); BLOOD UREA NITROGEN 9 mg/dL (7-18); CALCIUM 8.5 mg/dL (8.5-10.1); CHLORIDE 106 mmol/L (98-107); CO2 23 mmol/L (21-32); CREATININE 0.5 mg/dL (0.55-1.3); GLUCOSE,RANDOM 96 mg/dL (74-106); MAGNESIUM 2.1 mg/dL (1.8-2.4); PHOSPHOROUS 2.8 mg/dL (2.5-4.9); POTASSIUM 3.8 mmol/L (3.5-5.1); SGOT/AST 14 U/L (15-37); SGPT/ALT 19 U/L (13-61); SODIUM 138 mmol/L (136-145); TOT PROT 6.9 g/dl (6.4-8.2)
[2018-09-18] MEDS ORDERED: DEXTROSE 5%-WATER 100 ML IVPB ONE (09:30)
[2018-09-18] MEDS: CEFTRIAXONE 2 GM in DEXTROSE 5%-WATER 100 ML IVPB SCH (09:31)
[2018-09-18] MEDS: ENOXAPARIN NA (PORCINE) 40 MG/0.4 ML DISP.SYRIN SQ SCH ×2 (09:32→09:55)
[2018-09-18] MEDS: LACTATED RINGERS SOLUTION 1,000 ML/1,000 ML INFUS.BAG IV SCH ×2 (09:32→21:18)
[2018-09-18] MEDS ORDERED: ACETAMINOPHEN 325 MG TABLET (FP) PO PRN (09:52)
[2018-09-18 12:41] VITALS: BMI 29.8
--- NOTE | 2018-09-18 12:42 | CON.GU ---
Consult Consult Specialty:: Referred by:: Rainer Reason for Consultation:: Pyelonephritis - History of Present Illness Chief Complaint: flank pain History of Present Illness: 38 yo female without any major past medical history other than 2 mm R distal ureteral stone s/p R JJ stent placement in February 28, 2018 admitted for right flank pain, foul smelling urine, found to have UTI and likely Pyelonephritis. She states the pain began to develop a few weeks ago but has gotten worse. She states that she did not have a bowel movement for a few days but then yesterday prior to arrival to the ED, she had three bloody bowel movements. She has had hemorrhoids in the past and states this was different and that there was some blood in the water. Of note she has not been able to follow up with Urology since her stent was placed as she has two autistic children and has very difficult time finding care for them which prevents her from caring for herself often times. She expresses that she thinks the stent is likely infected as she did not have it removed when she was supposed to. She denies any fevers or chills. ER course was notable for: (1) TVUS noted with 6 week gestation without detected heartbeat, HCG 22007, Renal US noted (2) WBC count 15.3 (3) UA with 3+ LE, 3+blood, WBC 1165 cons req - History Source History Provided By: Patient, Medical Record Limitations to Obtaining History: No Limitations - Past Medical History Renal/: Yes: Renal Calculi, UTI ...LMP: 11/01/12 Infectious Disease: Yes: STD's (chlamydia treated in 1998) - Past Surgical History Past Surgical History: Yes: None - Alcohol/Substance Use Hx Alcohol Use: No History of Substance Use: reports: None - Smoking History Smoking history: Never smoked Have you smoked in the past 12 months: Yes Aproximately how many cigarettes per day: 8 - Social History Usual Living Arrangement: With Significant Other ADL: Independent History of Recent Travel: No Home Medications - Allergies Allergies/Adverse Reactions: Allergies Allergy/AdvReac Type Severity Reaction Status Date / Time No Known Allergies Allergy Verified 09/17/18 21:55 - Home Medications Home Medications: Ambulatory Orders Ibuprofen [Motrin -] 400 mg PO QID 09/18/18 Review of Systems - Review of Systems Genitourinary: reports: Dysuria, Flank Pain Physical Exam- Vital Signs: Vital Signs Temperature 98.2 F 09/18/18 05:36 Pulse Rate 84 09/18/18 05:36 Respiratory Rate 20 09/18/18 05:36 Blood Pressure 100/67 09/18/18 05:36 O2 Sat by Pulse Oximetry (%) 97 09/18/18 05:36 Constitutional: Yes: Well Nourished, No Distress, Calm Gastrointestinal: Yes: WNL, Soft Renal/: Yes: CVA Tenderness - Right Labs: CBC, BMP 09/18/18 08:21 09/18/18 08:21 Imaging - Results Ultrasound: Report Reviewed, Image Reviewed Problem List - Problems (1) Pyelonephritis Assessment/Plan: ur c+s, IV abxs Code(s): N12 - TUBULO-INTERSTITIAL NEPHRITIS, NOT SPCF ACUTE OR CHRONIC (2) Leukocytosis Code(s): D72.829 - ELEVATED WHITE BLOOD CELL COUNT, UNSPECIFIED (3) UTI (urinary tract infection) Code(s): N39.0 - URINARY TRACT INFECTION, SITE NOT SPECIFIED Qualifiers: Urinary tract infection type: acute cystitis Hematuria presence: without hematuria Qualified Code(s): N30.00 - Acute cystitis without hematuria (4) Ureteral calculus Assessment/Plan: cysto and R JJ stent removal Wednesday 09/20 Code(s): N20.1 - CALCULUS OF URETER
--- NOTE | 2018-09-18 12:43 | PN ---
Progress Note, Physician Chief Complaint: Ms Navarro says she is still having pain in her back but that it is much improved. Denies cp, sob, n/v. - Current Medication List Current Medications: Active Medications Acetaminophen (Tylenol -) 650 mg PO Q4H PRN PRN Reason: PAIN Enoxaparin Sodium (Lovenox -) 40 mg SQ DAILY [facility] Last Admin: 09/18/18 09:55 Dose: Not Given Ceftriaxone Sodium 2 gm/ (Dextrose) 100 mls @ 200 mls/hr IVPB DAILY [facility]; Protocol Last Admin: 09/18/18 09:31 Dose: 200 mls/hr Lactated Ringer's (Lactated Ringers Solution) 1,000 ml in 1,000 mls @ 100 mls/ hr IV ASDIR [facility]EN Last Admin: 09/18/18 09:32 Dose: 100 mls/hr Morphine Sulfate (Morphine Sulfate) 2 mg IVPUSH Q4H PRN PRN Reason: PAIN LEVEL 6-10 Last Admin: 09/18/18 08:08 Dose: 2 mg - Objective Vital Signs: Vital Signs Temperature 36.7 C 09/18/18 12:31 Pulse Rate 85 09/18/18 12:31 Respiratory Rate 18 09/18/18 12:31 Blood Pressure 119/75 09/18/18 12:31 O2 Sat by Pulse Oximetry (%) 99 09/18/18 12:31 Constitutional: Yes: Well Nourished, No Distress, Calm Cardiovascular: Yes: Regular Rate and Rhythm. No: Gallop, Murmur, Rub Respiratory: Yes: Regular, CTA Bilaterally. No: Rales, Rhonchi, Wheezes Gastrointestinal: Yes: Normal Bowel Sounds, Soft. No: Distention, Tenderness Extremities: Yes: WNL Edema: No Labs: CBC, BMP 09/18/18 08:21 09/18/18 08:21 Problem List - Problems (1) Pyelonephritis Assessment/Plan: -hydration with IVF -rocephin 2gm daily -pain control with morphine -improving clinically -urology consulted, will need ureteral stent removed Code(s): N12 - TUBULO-INTERSTITIAL NEPHRITIS, NOT SPCF ACUTE OR CHRONIC (2) Anemia Assessment/Plan: -stable Code(s): D64.9 - ANEMIA, UNSPECIFIED (3) Early stage of Assessment/Plan: -obstetrics consulted -no heart beat detected Code(s): Z33.1 - STATE, INCIDENTAL
[2018-09-18] MEDS: DOCUSATE SODIUM 100 MG CAPSULE (FP) PO SCH ×2 (14:05→21:16)
[2018-09-18] MEDS: POLYETHYLENE GLYCOL 3350 119 GM BTL PO SCH ×2 (14:05→21:17)
[2018-09-19] MEDS: MORPHINE SULFATE 2 MG/ML VIAL IVPUSH PRN (01:33)
[2018-09-19] MEDS: LACTATED RINGERS SOLUTION 1,000 ML/1,000 ML INFUS.BAG IV SCH ×2 (06:03→22:36)
[2018-09-19 08:38] LABS: BASO % 0.3 % (0-2.0); HEMATOCRIT 33.7 % (32.4-45.2); HEMOGLOBIN 10.9 GM/dL (10.7-15.3); LYMPH % 34.3 % (8-40); MCH 29.7 pg (25.7-33.7); MCHC 32.3 g/dl (32.0-36.0); MEAN PLT VOLUME 8.3 fl (7.5-11.1); MONO % 6.7 % (3.8-10.2); NEUT % 57.7 % (42.8-82.8); PLATELET COUNT 380 K/MM3 (134-434); RBC 3.67 M/mm3 (3.60-5.2); RDW 13.2 % (11.6-15.6); WHITE BLOOD COUNT 9.3 K/mm3 (4.0-10.0)
[2018-09-19 08:53] LABS: ANION GAP 7 MMOL/L (8-16); BLOOD UREA NITROGEN 7 mg/dL (7-18); CALCIUM 8.6 mg/dL (8.5-10.1); CHLORIDE 106 mmol/L (98-107); CO2 23 mmol/L (21-32); CREATININE 0.4 mg/dL (0.55-1.3); GLUCOSE,RANDOM 84 mg/dL (74-106); PHOSPHOROUS 3.2 mg/dL (2.5-4.9); POTASSIUM 4.1 mmol/L (3.5-5.1); SODIUM 137 mmol/L (136-145)
[2018-09-19] MEDS ORDERED: DEXTROSE 5%-WATER 100 ML IVPB ONE (09:17)
[2018-09-19] MEDS: CEFTRIAXONE 2 GM in DEXTROSE 5%-WATER 100 ML IVPB SCH (09:50)
[2018-09-19] MEDS: POLYETHYLENE GLYCOL 3350 119 GM BTL PO SCH ×2 (09:50→22:39)
[2018-09-19] MEDS: DOCUSATE SODIUM 100 MG CAPSULE (FP) PO SCH ×2 (09:50→22:36)
[2018-09-19] MEDS: ENOXAPARIN NA (PORCINE) 40 MG/0.4 ML DISP.SYRIN SQ SCH (09:51)
[2018-09-19] MEDS ORDERED: oxyCODONE HCL 5 MG TABLET PO PRN (10:16)
[2018-09-19] MEDS ORDERED: diphenhydrAMINE HCL 25 MG CAPSULE (FP) PO ONE (10:16)
--- NOTE | 2018-09-19 10:46 | CON.OBG ---
Consult Consult Specialty:: delivery director Reason for Consultation:: missed ab? - History of Present Illness Chief Complaint: pt admitted with urinary issues and it was determined that she was History of Present Illness: as above. This is a non desired . Spokw ith pt about possible rescan and if it is a non viable she may self abort. Will remain on expective management for now. SHe will follow u with [facility]. No management as of now - History Source History Provided By: Patient Limitations to Obtaining History: No Limitations - Past Medical History NEWSPAPER CARRIER: No: Alzheimer's, CVA, Dementia, Migraine, Multiple Sclerosis, Peripheral Neuropathy, Parkinson's, Seizure, Syncope, TIA, Vertigo, Other Cardio/Vascular: No: AFIB, Aneurysm, Aortic Insufficiency, Aortic Stenosis, CAD , CHF, Deep Vein Thrombosis, HTN, Hyperlipdemia, [place], Mitral Insufficiency, Mitral Stenosis, Murmur, Pulmonary Hypertension, Other Pulmonary: No: Asthma, Bronchitis, Cancer, COPD, O2 Dependent, Pneumonia, Previously Intubated, Pulmonary Embolus, Pulmonary Fibrosis, Sleep Apnea, Other Hepatobiliary: No: Cirrhosis, Cholelithiasis, Cholecystitis, Choledocholithiasis , Hepatitis A, Hepatitis B, Hepatitis C, Other Renal/: Yes: Renal Calculi, UTI. No: Renal Failure, Renal Inusuff, BPH, Cancer, Hematuria, Hemodialysis, Neurogenic Bladder, Other Reproductive: No: Ectopic , Endometriosis, Fibroids, PID, Polycystic Ovary Syndrome, Postmenopausal, Other ...LMP: 11/01/12 ...: Yes Heme/Onc: No: Anemia, B12 Deficiency, Bleeding Disorder, Cancer, Current Chemotherapy, Current Radiation Therapy, Hemochromatosis, Hypercoaguable State, Myeloproliferative Synd, Sickle Cell Disease, Sickle Cell Trait, Thrombocytopenia, Other Infectious Disease: Yes: STD's (chlamydia treated in 1998). No: AIDS, C-Diff, Herpes Zoster, HIV, MRSA, Tuberculosis, VREF, Other Psych: No: Addictions, Anxiety, Bipolar, Depression, Panic, Psychosis, Schizophrenia, Other Musculoskeletal: No: Bursitis, Chronic low back pain, Hemiparesis, Hemiplegia, Osteoarthritis, Paraplegia, Other Endocrine: No: [place]'s Disease, [place]'s Disease, Diabetes Insipidus, Diabetes Mellitus, Hyperparathyroidism, Hyperthyroidism, Hypothyroidism, Osteopenia, SIADH, Other - Past Surgical History Past Surgical History: Yes: None - Alcohol/Substance Use Hx Alcohol Use: No History of Substance Use: reports: None - Smoking History Smoking history: Never smoked Have you smoked in the past 12 months: Yes Aproximately how many cigarettes per day: 8 - Social History Usual Living Arrangement: With Significant Other ADL: Independent History of Recent Travel: No Home Medications - Allergies Allergies/Adverse Reactions: Allergies Allergy/AdvReac Type Severity Reaction Status Date / Time No Known Allergies Allergy Verified 09/17/18 21:55 - Home Medications Home Medications: Ambulatory Orders Ibuprofen [Motrin -] 400 mg PO QID 09/18/18 Physical Exam-MANAGER PHP Vital Signs: Vital Signs Temperature 98.2 F 09/19/18 05:00 Pulse Rate 69 09/19/18 05:00 Respiratory Rate 20 09/19/18 05:00 Blood Pressure 96/71 09/19/18 05:00 O2 Sat by Pulse Oximetry (%) 99 09/18/18 20:41 Labs: CBC, BMP 09/19/18 07:00 09/19/18 07:00 Assessment/Plan as above expectant management will follow up with [facility]
--- NOTE | 2018-09-19 11:16 | CON.GI ---
Consult Consult Specialty:: GI Referred by:: Hospitalist Service Reason for Consultation:: Rectal bleeding - History of Present Illness Chief Complaint: Foul smelling urine History of Present Illness: 38F admitted for evaluation of foul smelling urine. has ureteral stent placed secondary to ureterolithiasis. noted to have episodes of bright red blood per rectum when attempting to have a bowel movement. Describes constipation. There have been no clots passed. There is no abdominal pain. No family history of colorectal cancer or other GI malignancy. She states that someone already performed rectal exam and that she is sore. 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: No: Alzheimer's, CVA, Dementia, Migraine, Multiple Sclerosis, Peripheral Neuropathy, Parkinson's, Seizure, Syncope, TIA, Vertigo, Other Cardio/Vascular: No: AFIB, Aneurysm, Aortic Insufficiency, Aortic Stenosis, CAD , CHF, Deep Vein Thrombosis, HTN, Hyperlipdemia, [place], Mitral Insufficiency, Mitral Stenosis, Murmur, Pulmonary Hypertension, Other Pulmonary: No: Asthma, Bronchitis, Cancer, COPD, O2 Dependent, Pneumonia, Previously Intubated, Pulmonary Embolus, Pulmonary Fibrosis, Sleep Apnea, Other Hepatobiliary: No: Cirrhosis, Cholelithiasis, Cholecystitis, Choledocholithiasis , Hepatitis A, Hepatitis B, Hepatitis C, Other Renal/: Yes: Renal Calculi, UTI. No: Renal Failure, Renal Inusuff, BPH, Cancer, Hematuria, Hemodialysis, Neurogenic Bladder, Other ...LMP: 11/01/12 ...: Yes Infectious Disease: Yes: STD's (chlamydia treated in 1998). No: AIDS, C-Diff, Herpes Zoster, HIV, MRSA, Tuberculosis, VREF, Other Psych: No: Addictions, Anxiety, Bipolar, Depression, Panic, Psychosis, Schizophrenia, Other Musculoskeletal: No: Bursitis, Chronic low back pain, Hemiparesis, Hemiplegia, Osteoarthritis, Paraplegia, Other Endocrine: No: [place]'s Disease, [place]'s Disease, Diabetes Insipidus, Diabetes Mellitus, Hyperparathyroidism, Hyperthyroidism, Hypothyroidism, Osteopenia, SIADH, Other - Past Surgical History Past Surgical History: Yes: None - Alcohol/Substance Use Hx Alcohol Use: No History of Substance Use: reports: None - Smoking History Smoking history: Never smoked Have you smoked in the past 12 months: Yes Aproximately how many cigarettes per day: 8 - Social History Usual Living Arrangement: With Significant Other ADL: Independent History of Recent Travel: No Home Medications - Allergies Allergies/Adverse Reactions: Allergies Allergy/AdvReac Type Severity Reaction Status Date / Time No Known Allergies Allergy Verified 09/17/18 21:55 - Home Medications Home Medications: Ambulatory Orders Ibuprofen [Motrin -] 400 mg PO QID 09/18/18 Physical Exam-GI Vital Signs: Vital Signs Temperature 98.2 F 09/19/18 05:00 Pulse Rate 69 09/19/18 05:00 Respiratory Rate 20 09/19/18 05:00 Blood Pressure 96/71 09/19/18 05:00 O2 Sat by Pulse Oximetry (%) 99 09/18/18 20:41 Constitutional: Yes: Calm Eyes: No: Sclera Icterus Cardiovascular: Yes: Regular Rate and Rhythm Respiratory: Yes: CTA Bilaterally Gastrointestinal Inspection: No: Distention, Scars ...Auscultate: Yes: Normoactive Bowel Sounds ...Palpate: Yes: Tenderness (TTP pelvis) ...Percussion: No: Tympanitic ...Rectal Exam: Yes: Other (No external lesions, limited exam as she only allowed finger tip into the anal canal. No blood, no masses palpated, no stricturing of the anal canal) Edema: No Neurological: Yes: Alert Labs: CBC, BMP 09/19/18 07:00 09/19/18 07:00 Problem List - Problems (1) Rectal bleed Assessment/Plan: Suspected internal hemorrhoidal bleeding precipitated by constipation Advise: Continuing MiraLAX 17g BID Anusol HC suppository 1 ME BID for 5 days Minimize opiate analgesia Advised that is bleeding persists, she should follow0-up with me in office to arrange further evaluation in order to exclude alternate causes. I gave her my card and information provided in discharge summary Plan if for cysto tomorrow with stent removal Recall if bleeding persists Code(s): K62.5 - HEMORRHAGE OF ANUS AND RECTUM
--- NOTE | 2018-09-19 11:36 | PN ---
Progress Note, Physician Chief Complaint: Ms Navarro says she is still having pain in her flank but it is better. Having some brbpr today. No cp, sob, n/v. - Current Medication List Current Medications: Active Medications Acetaminophen (Tylenol -) 650 mg PO Q4H PRN PRN Reason: PAIN Last Admin: 09/19/18 01:33 Dose: 650 mg Docusate Sodium (Colace -) 100 mg PO BID [facility] Last Admin: 09/19/18 09:50 Dose: 100 mg Enoxaparin Sodium (Lovenox -) 40 mg SQ DAILY [facility] Last Admin: 09/19/18 09:51 Dose: Not Given Hydrocortisone Acetate (Anusol Hc Suppository -) 25 mg RC BID [facility] Stop: 09/24/18 11:14 Ceftriaxone Sodium 2 gm/ (Dextrose) 100 mls @ 200 mls/hr IVPB DAILY [facility]; Protocol Last Admin: 09/19/18 09:50 Dose: 200 mls/hr Lactated Ringer's (Lactated Ringers Solution) 1,000 ml in 1,000 mls @ 100 mls/ hr IV ASDIR [facility] Last Admin: 09/19/18 06:03 Dose: 100 mls/hr Oxycodone HCl (Roxicodone -) 10 mg PO Q4H PRN PRN Reason: PAIN LEVEL 6-10 Polyethylene Glycol (Miralax (For Daily Use) -) 17 gm PO BID [facility] Last Admin: 09/19/18 09:50 Dose: 17 grams - Objective Vital Signs: Vital Signs Temperature 36.8 C 09/19/18 05:00 Pulse Rate 69 09/19/18 05:00 Respiratory Rate 20 09/19/18 05:00 Blood Pressure 96/71 09/19/18 05:00 O2 Sat by Pulse Oximetry (%) 99 09/18/18 20:41 Constitutional: Yes: No Distress, Calm, Obese Cardiovascular: Yes: Regular Rate and Rhythm. No: Gallop, Murmur, Rub Respiratory: Yes: Regular, CTA Bilaterally. No: Rales, Rhonchi, Wheezes Gastrointestinal: Yes: Normal Bowel Sounds, Soft. No: Distention, Tenderness Extremities: Yes: WNL Edema: No Labs: CBC, BMP 09/19/18 07:00 09/19/18 07:00 Problem List - Problems (1) Pyelonephritis Code(s): N12 - TUBULO-INTERSTITIAL NEPHRITIS, NOT SPCF ACUTE OR CHRONIC (2) Anemia Code(s): D64.9 - ANEMIA, UNSPECIFIED Assessment/Plan (1) Pyelonephritis Assessment/Plan: -appreciate urology assistance -planning for stent removal tomorrow -improving -urine culture growing gram negative rods -continue rocephin 2gm daily Code(s): N12 - TUBULO-INTERSTITIAL NEPHRITIS, NOT SPCF ACUTE OR CHRONIC (2) Anemia Assessment/Plan: -stable Code(s): D64.9 - ANEMIA, UNSPECIFIED (3) Early stage of Assessment/Plan: -appreciate ob assistance Code(s): Z33.1 - STATE, INCIDENTAL (4) Hemorrhoids -appreciate GI assistance -anusol for 5 days
[2018-09-19] MEDS: HYDROCORTISONE ACETATE 25 MG/SUPP.RECT RC SCH ×2 (14:06→22:39)
[2018-09-19] MEDS ORDERED: ONDANSETRON 4 MG/2 ML VIAL IVPUSH ONE (20:34)
[2018-09-19] MEDS: oxyCODONE HCL 5 MG TABLET PO PRN (22:41)
[2018-09-20] MEDS ORDERED: diphenhydrAMINE HCL 25 MG CAPSULE (FP) PO ONE ×2 (02:10→20:45)
[2018-09-20] MEDS: LACTATED RINGERS SOLUTION 1,000 ML/1,000 ML INFUS.BAG IV SCH (06:09)
[2018-09-20 06:55] LABS: BASO % 0.1 % (0-2.0); EOS % 0.9 % (0-4.5); HEMATOCRIT 33.2 % (32.4-45.2); HEMOGLOBIN 11.1 GM/dL (10.7-15.3); LYMPH % 32.1 % (8-40); MCH 30.2 pg (25.7-33.7); MCHC 33.3 g/dl (32.0-36.0); MEAN CELL VOLUME 90.7 fl (80-96); MEAN PLT VOLUME 8.1 fl (7.5-11.1); MONO % 6.9 % (3.8-10.2); PLATELET COUNT 389 K/MM3 (134-434); RBC 3.66 M/mm3 (3.60-5.2); RDW 13.3 % (11.6-15.6); WHITE BLOOD COUNT 10.4 K/mm3 (4.0-10.0)
[2018-09-20 07:42] LABS: ANION GAP 8 MMOL/L (8-16); BLOOD UREA NITROGEN 8 mg/dL (7-18); CALCIUM 8.6 mg/dL (8.5-10.1); CHLORIDE 106 mmol/L (98-107); CO2 23 mmol/L (21-32); CREATININE 0.5 mg/dL (0.55-1.3); GLUCOSE,RANDOM 80 mg/dL (74-106); MAGNESIUM 1.8 mg/dL (1.8-2.4); PHOSPHOROUS 3.8 mg/dL (2.5-4.9); POTASSIUM 4.2 mmol/L (3.5-5.1); SODIUM 137 mmol/L (136-145)
[2018-09-20] MEDS ORDERED: DEXTROSE 5%-WATER 100 ML IVPB ONE (09:28)
[2018-09-20] MEDS: oxyCODONE HCL 5 MG TABLET PO PRN ×2 (09:40→15:55)
[2018-09-20] MEDS: POLYETHYLENE GLYCOL 3350 119 GM BTL PO SCH ×2 (09:41→21:22)
[2018-09-20] MEDS: CEFTRIAXONE 2 GM in DEXTROSE 5%-WATER 100 ML IVPB SCH (09:41)
[2018-09-20] MEDS: HYDROCORTISONE ACETATE 25 MG/SUPP.RECT RC SCH ×2 (09:41→21:25)
[2018-09-20] MEDS: ENOXAPARIN NA (PORCINE) 40 MG/0.4 ML DISP.SYRIN SQ SCH (09:41)
[2018-09-20] MEDS: DOCUSATE SODIUM 100 MG CAPSULE (FP) PO SCH ×2 (09:41→21:22)
--- NOTE | 2018-09-20 14:05 | PN ---
LOWELL Horta Note History of Present Illness: pt was to have cysto and R JJ stent removal today however she refuses to have procedure done under local anesthesia and anesthesiologist will not give any iv sedation until after pt has TOP despite absence of HR. Will reshedule after TOP. - Objective Vital Signs: Vital Signs Temperature 98.1 F 09/20/18 13:23 Pulse Rate 61 09/20/18 13:23 Respiratory Rate 18 09/20/18 13:23 Blood Pressure 108/63 09/20/18 13:23 O2 Sat by Pulse Oximetry (%) 99 09/20/18 09:00 Labs/Additional Data: CBC, BMP 09/20/18 06:00 09/20/18 06:00 Blood Type Blood Type O POSITIVE 09/18/18 00:00 Antibody Screen Negative 09/18/18 00:00 Problem List - Problems (1) Pyelonephritis Code(s): N12 - TUBULO-INTERSTITIAL NEPHRITIS, NOT SPCF ACUTE OR CHRONIC (2) Leukocytosis Code(s): D72.829 - ELEVATED WHITE BLOOD CELL COUNT, UNSPECIFIED (3) UTI (urinary tract infection) Code(s): N39.0 - URINARY TRACT INFECTION, SITE NOT SPECIFIED Qualifiers: Urinary tract infection type: acute cystitis Hematuria presence: without hematuria Qualified Code(s): N30.00 - Acute cystitis without hematuria (4) Ureteral calculus Code(s): N20.1 - CALCULUS OF URETER
--- NOTE | 2018-09-20 16:37 | PN ---
Progress Note, Physician Chief Complaint: Ms Navarro complains of being hungry and wanting to eat something. Very impatient to have surgery so she can eat. - Current Medication List Current Medications: Active Medications Acetaminophen (Tylenol -) 650 mg PO Q4H PRN PRN Reason: PAIN Last Admin: 09/19/18 01:33 Dose: 650 mg Docusate Sodium (Colace -) 100 mg PO BID [facility] Last Admin: 09/20/18 09:41 Dose: Not Given Enoxaparin Sodium (Lovenox -) 40 mg SQ DAILY [facility] Last Admin: 09/20/18 09:41 Dose: Not Given Hydrocortisone Acetate (Anusol Hc Suppository -) 25 mg RC BID [facility] Stop: 09/24/18 11:14 Last Admin: 09/20/18 09:41 Dose: Not Given Ceftriaxone Sodium 2 gm/ (Dextrose) 100 mls @ 200 mls/hr IVPB DAILY [facility]; Protocol Last Admin: 09/20/18 09:41 Dose: 200 mls/hr Lactated Ringer's (Lactated Ringers Solution) 1,000 ml in 1,000 mls @ 100 mls/ hr IV ASDIR [facility] Last Admin: 09/20/18 06:09 Dose: Not Given Oxycodone HCl (Roxicodone -) 10 mg PO Q4H PRN PRN Reason: PAIN LEVEL 6-10 Last Admin: 09/20/18 15:55 Dose: 10 mg Polyethylene Glycol (Miralax (For Daily Use) -) 17 gm PO BID [facility] Last Admin: 09/20/18 09:41 Dose: Not Given - Objective Vital Signs: Vital Signs Temperature 36.7 C 09/20/18 13:23 Pulse Rate 61 09/20/18 13:23 Respiratory Rate 18 09/20/18 13:23 Blood Pressure 108/63 09/20/18 13:23 O2 Sat by Pulse Oximetry (%) 99 09/20/18 09:00 Constitutional: Yes: No Distress, Calm, Obese Cardiovascular: Yes: Regular Rate and Rhythm. No: Gallop, Murmur, Rub Respiratory: Yes: Regular, CTA Bilaterally. No: Rales, Rhonchi, Wheezes Gastrointestinal: Yes: Normal Bowel Sounds, Soft. No: Distention, Tenderness Extremities: Yes: WNL Edema: No Labs: CBC, BMP 09/20/18 06:00 09/20/18 06:00 Problem List - Problems (1) Pyelonephritis Code(s): N12 - TUBULO-INTERSTITIAL NEPHRITIS, NOT SPCF ACUTE OR CHRONIC (2) Anemia Code(s): D64.9 - ANEMIA, UNSPECIFIED Assessment/Plan (1) Pyelonephritis Assessment/Plan: -growing e coli resistant only to fluoroquinolones -continue rocephin currently -was to have stent removed today, but patient refused local/spinal anesthesia -only agrees to general -however concern secondary to -call placed to Dr Serrano and awaiting call back -may need to do as an outpatient Code(s): N12 - TUBULO-INTERSTITIAL NEPHRITIS, NOT SPCF ACUTE OR CHRONIC (2) Anemia Assessment/Plan: -stable Code(s): D64.9 - ANEMIA, UNSPECIFIED (3) Early stage of Assessment/Plan: -as above Code(s): Z33.1 - STATE, INCIDENTAL (4) Hemorrhoids -appreciate GI assistance -anusol for 5 days
[2018-09-21 07:07] LABS: BASO % 0.7 % (0-2.0); HEMATOCRIT 35.3 % (32.4-45.2); HEMOGLOBIN 11.5 GM/dL (10.7-15.3); LYMPH % 29.8 % (8-40); MCH 29.8 pg (25.7-33.7); MCHC 32.5 g/dl (32.0-36.0); MEAN CELL VOLUME 91.5 fl (80-96); MEAN PLT VOLUME 8.1 fl (7.5-11.1); MONO % 7.2 % (3.8-10.2); NEUT % 61.3 % (42.8-82.8); PLATELET COUNT 395 K/MM3 (134-434); RBC 3.85 M/mm3 (3.60-5.2); RDW 13.3 % (11.6-15.6); WHITE BLOOD COUNT 8.4 K/mm3 (4.0-10.0)
[2018-09-21 07:50] LABS: ANION GAP 5 MMOL/L (8-16); BLOOD UREA NITROGEN 10 mg/dL (7-18); CALCIUM 8.8 mg/dL (8.5-10.1); CHLORIDE 106 mmol/L (98-107); CO2 25 mmol/L (21-32); CREATININE 0.5 mg/dL (0.55-1.3); GLUCOSE,RANDOM 84 mg/dL (74-106); MAGNESIUM 1.9 mg/dL (1.8-2.4); PHOSPHOROUS 3.7 mg/dL (2.5-4.9); POTASSIUM 4.7 mmol/L (3.5-5.1); SODIUM 136 mmol/L (136-145)
[2018-09-21] MEDS ORDERED: DEXTROSE 5%-WATER 100 ML IVPB ONE (08:57)
--- NOTE | 2018-09-21 09:23 | PN ---
Progress Note (short form) - Note Progress Note: pt has an undesired and will have a TOP. Her sono shows no FH which could developmental or c/w missed ab. Can get another sono and if no FH, it would be deemed a missed ab. Pt may pass tissue spontaneosly or opt for a d n c. Since it is an undesired , may proceed with general anesthesia.
--- NOTE | 2018-09-21 10:00 | PN ---
LOWELL Horta Note History of Present Illness: [employer] LEAD note appreciated, cleared for gen anesthesia as pt is to have TOP for undesired without HR, Cleared by Dr. Santillan. Will proceed 09/22 - Objective Vital Signs: Vital Signs Temperature 98.1 F 09/21/18 06:00 Pulse Rate 63 09/21/18 06:00 Respiratory Rate 18 09/21/18 06:00 Blood Pressure 94/52 L 09/21/18 06:00 O2 Sat by Pulse Oximetry (%) 100 09/20/18 21:00 Labs/Additional Data: CBC, BMP 09/21/18 06:30 09/21/18 06:30 Blood Type Blood Type O POSITIVE 09/18/18 00:00 Antibody Screen Negative 09/18/18 00:00 Problem List - Problems (1) Pyelonephritis Code(s): N12 - TUBULO-INTERSTITIAL NEPHRITIS, NOT SPCF ACUTE OR CHRONIC (2) Leukocytosis Code(s): D72.829 - ELEVATED WHITE BLOOD CELL COUNT, UNSPECIFIED (3) UTI (urinary tract infection) Assessment/Plan: cysto R JJ stent removal 09/22 Code(s): N39.0 - URINARY TRACT INFECTION, SITE NOT SPECIFIED Qualifiers: Urinary tract infection type: acute cystitis Hematuria presence: without hematuria Qualified Code(s): N30.00 - Acute cystitis without hematuria (4) Ureteral calculus Code(s): N20.1 - CALCULUS OF URETER
[2018-09-21] MEDS: oxyCODONE HCL 5 MG TABLET PO PRN (10:25)
[2018-09-21] MEDS: LACTATED RINGERS SOLUTION 1,000 ML/1,000 ML INFUS.BAG IV SCH (10:26)
[2018-09-21] MEDS: DOCUSATE SODIUM 100 MG CAPSULE (FP) PO SCH ×2 (10:27→22:01)
[2018-09-21] MEDS: HYDROCORTISONE ACETATE 25 MG/SUPP.RECT RC SCH ×2 (10:27→22:04)
[2018-09-21] MEDS: POLYETHYLENE GLYCOL 3350 119 GM BTL PO SCH ×2 (10:28→22:04)
[2018-09-21] MEDS: ENOXAPARIN NA (PORCINE) 40 MG/0.4 ML DISP.SYRIN SQ SCH (10:28)
[2018-09-21] MEDS: CEFTRIAXONE 2 GM in DEXTROSE 5%-WATER 100 ML IVPB SCH (10:28)
--- NOTE | 2018-09-21 14:28 | PN ---
Physical Exam: SUBJECTIVE: Patient seen and examined by me at bedside. Overnight events noted. Patient had hives and was given 1 dose of benadryl. Patient reports this happens frequently and is unsure what the cause is. Patient otherwise reports some suprapubic tenderness with flank pain. Has some dysuria but much improved Patient also complains of constipation despite using maalox. Denies any fever, chills, nausea, vomiting, chest pain, palpitations, shortness of breath. OBJECTIVE: Vital Signs Period Temp Pulse Resp BP Sys/Small Pulse Ox Last 24 Hr 97.9 F-98.5 F 63-79 18-20 90-111/52-77 95-100 GENERAL: The patient is awake, alert, and fully oriented, in no acute distress. EYES: Sclera anicteric, conjunctiva clear. No ptosis. ENT: Moist mucous membranes. LUNGS: Breath sounds equal, clear to auscultation bilaterally, no wheezes, no crackles, no accessory muscle use. HEART: Regular rate and rhythm, S1, S2 without murmur, rub or gallop. ABDOMEN: Soft, Mild tenderness upon palpation of suprapubic region, nondistended , normoactive bowel sounds EXTREMITIES: No edema. SKIN: Warm, dry, normal turgor or lesions Laboratory Results - last 24 hr 09/21/18 09/21/18 06:30 06:30 WBC 8.4 RBC 3.85 Hgb 11.5 Hct 35.3 MCV 91.5 MCH 29.8 MCHC 32.5 RDW 13.3 Plt Count 395 MPV 8.1 Absolute Neuts (auto) 5.1 Neutrophils % 61.3 Lymphocytes % 29.8 Monocytes % 7.2 Eosinophils % 1.0 Basophils % 0.7 D Nucleated RBC % 0 Sodium 136 Potassium 4.7 Chloride 106 Carbon Dioxide 25 Anion Gap 5 L BUN 10 Creatinine 0.5 L Creat Clearance w eGFR > 60 Random Glucose 84 Calcium 8.8 Phosphorus 3.7 Magnesium 1.9 Active Medications Generic Name Dose Route Start Last Admin Trade Name Freq PRN Reason Stop Dose Admin Acetaminophen 650 mg 09/18/18 09:52 09/19/18 01:33 Tylenol - PO 650 mg Q4H PRN Administration PAIN Docusate Sodium 100 mg 09/18/18 14:00 09/21/18 10:27 Colace - PO 100 mg BID [facility] Administration Enoxaparin Sodium 40 mg 09/18/18 10:00 09/21/18 10:28 Lovenox - SQ 40 mg DAILY [facility] Administration Hydrocortisone Acetate 25 mg 09/19/18 11:15 09/21/18 10:27 Anusol Hc Suppository - RC 09/24/18 11:14 25 mg BID [facility] Administration Ceftriaxone Sodium 2 gm/ 100 mls @ 200 mls/hr 09/18/18 10:00 09/21/18 10:28 Dextrose IVPB 200 mls/hr DAILY [facility] Administration Protocol Lactated Ringer's 1,000 ml in 1,000 mls @ 100 mls/hr 09/18/18 06:00 09/21/18 10:26 Lactated Ringers Solution IV 100 mls/hr ASDIR [facility] Administration Oxycodone HCl 10 mg 09/19/18 11:27 09/21/18 10:25 Roxicodone - PO 10 mg Q4H PRN Administration PAIN LEVEL 6-10 Polyethylene Glycol 17 gm 09/18/18 14:00 09/21/18 10:28 Miralax (For Daily Use) - PO Not Given BID [facility] ASSESSMENT/PLAN: Patient is a 38 year old female with a PMHx of Nephrolithiasis s/p stent who presented for flank pain and suprapubic tenderness. Patient found to have Pyelonephritis and admitted for further monitoring and management. #Pyelonephritis -Likely secondary to UTI from stent placement not removed -Urine cultures rajinder ecoli with resistance to fluoroquinolones. Blood cultures negative -Cleared by OBGYN to have stent removed by urology tomorrow under general anesthesia -Continue IV Rocephin 2gm daily (Day #4) -Will need to keep NPO after midnight for procedure tomorrow -Roxicodone PRN for pain control #Early Stage -No FHR on U/S. Undesired . May proceed with general anesthesia, as per OBGYN -If patient does not have passage of POC, will need D&C as outpatient. #Suspected Internal Hemorrhoids -Likely from constipation -GI recommendations appreciated. -Continue Miralax daily and Anusol suppository BID for 5 days -Will need to follow up as outpatient if bleeding persists #Constipation -Continue Miralax, colace and suppository F/E/N -IV LR @100mls/hr -Electrolytes wnl -Regular diet then NPO after midnight Prophylaxis -Lovenox for DVT but will stop prior to procedure Disposition -Full code -Patient scheduled for cysto and R JJ stent removal tomorrow Florencia Jesus MD- PGY3 Visit type - Emergency Visit Emergency Visit: Yes ED Registration Date: 09/18/18 Care time: The patient presented to the Emergency Department on the above date and was hospitalized for further evaluation of their emergent condition. - New Patient This patient is new to me today: Yes Date on this admission: 09/21/18 - Critical Care Critical Care patient: No
--- NOTE | 2018-09-21 17:00 | PN ---
Teaching Attending Note Name of Resident: Florencia Jesus ATTENDING PHYSICIAN STATEMENT I saw and evaluated the patient. I reviewed the resident's note and discussed the case with the resident. I agree with the resident's findings and plan as documented. SUBJECTIVE: Ms Navarro has no somatic complaints. Denies cp, sob, n/v OBJECTIVE: Last Vital Signs Temp Pulse Resp BP Pulse Ox 36.7 C 73 20 111/61 95 09/21/18 14:01 09/21/18 14:01 09/21/18 14:09/21/18 14:09/21/18 09:00 Gen: nad, obese Pulm: ctab w/o w/r/r CV: rrr w/o m/r/g Abd: +bs, s/nt/nd Ext: no c/c/e CBC, BMP 09/21/18 06:30 09/21/18 06:30 ASSESSMENT AND PLAN: (1) Pyelonephritis Assessment/Plan: -growing e coli resistant only to fluoroquinolones -continue rocephin currently -plan for stent removal tomorrow -considering length of time stent has been in place, suspect will need 24 hours of IV antibiotics after removal to prevent transient bacteremia -plan for d/c on oral antibiotics on Code(s): N12 - TUBULO-INTERSTITIAL NEPHRITIS, NOT SPCF ACUTE OR CHRONIC (2) Anemia Assessment/Plan: -stable Code(s): D64.9 - ANEMIA, UNSPECIFIED (3) Early stage of Assessment/Plan: -as above Code(s): Z33.1 - STATE, INCIDENTAL (4) Hemorrhoids -appreciate GI assistance -anusol day 11/09 Problem List - Problems (1) Pyelonephritis Code(s): N12 - TUBULO-INTERSTITIAL NEPHRITIS, NOT SPCF ACUTE OR CHRONIC (2) Anemia Code(s): D64.9 - ANEMIA, UNSPECIFIED
[2018-09-21] MEDS ORDERED: PT OWN MED DRAWER 7, Y5N ONE (22:52)
[2018-09-21] MEDS ORDERED: diphenhydrAMINE HCL 25 MG CAPSULE (FP) PO ONE (23:30)
[2018-09-22] MEDS: LACTATED RINGERS SOLUTION 1,000 ML/1,000 ML INFUS.BAG IV SCH ×2 (03:29→06:00)
[2018-09-22 07:14] LABS: HEMOGLOBIN 11.5 GM/dL (10.7-15.3); MCH 31.8 pg (25.7-33.7); MCHC 34.9 g/dl (32.0-36.0); MEAN CELL VOLUME 91.4 fl (80-96); MEAN PLT VOLUME 8.4 fl (7.5-11.1); PLATELET COUNT 396 K/MM3 (134-434); RBC 3.62 M/mm3 (3.60-5.2); WHITE BLOOD COUNT 10.3 K/mm3 (4.0-10.0)
[2018-09-22 07:59] LABS: INR 1.04 (0.83-1.09); PROTHROMBIN TIME (PATIENT) 12.3 SEC (9.7-13.0)
[2018-09-22 08:16] LABS: ALBUMIN 3.3 g/dl (3.4-5.0); ALK PHOS 73 U/L (45-117); ANION GAP 7 MMOL/L (8-16); BILIRUBIN,TOTAL 0.3 mg/dL (0.2-1); BLOOD UREA NITROGEN 11 mg/dL (7-18); CHLORIDE 103 mmol/L (98-107); CO2 26 mmol/L (21-32); CREATININE 0.5 mg/dL (0.55-1.3); GLUCOSE,RANDOM 88 mg/dL (74-106); PHOSPHOROUS 3.9 mg/dL (2.5-4.9); POTASSIUM 4.1 mmol/L (3.5-5.1); SGOT/AST 13 U/L (15-37); SGPT/ALT 25 U/L (13-61); SODIUM 137 mmol/L (136-145); TOT PROT 6.6 g/dl (6.4-8.2)
[2018-09-22] MEDS ORDERED: DEXTROSE 5%-LACTATED RINGERS 1,000 ML IV SCH (08:30)
[2018-09-22] MEDS ORDERED: DEXTROSE 5%-WATER 100 ML IVPB ONE (09:00)
[2018-09-22] MEDS: CEFTRIAXONE 2 GM in DEXTROSE 5%-WATER 100 ML IVPB SCH (09:42)
[2018-09-22] MEDS: DOCUSATE SODIUM 100 MG CAPSULE (FP) PO SCH ×2 (09:43→22:35)
[2018-09-22] MEDS: oxyCODONE HCL 5 MG TABLET PO PRN (09:43)
[2018-09-22] MEDS: HYDROCORTISONE ACETATE 25 MG/SUPP.RECT RC SCH ×2 (09:44→22:35)
[2018-09-22] MEDS: POLYETHYLENE GLYCOL 3350 119 GM BTL PO SCH ×2 (09:44→22:35)
--- NOTE | 2018-09-22 12:44 | PN ---
Progress Note (short form) - Note Progress Note: 38F with unintended and unwanted 6 weeks IUP now bacteremic secondary to infected stent. Appreciate OB input, understand that it is not possible to assess viability of or presence of FHR this early in . Discussed possibility of losing with patient, patient understands and accepts that risk. Will proceed with GA for this medically urgent procedure. Pt stating she is planning an elective termination of at her earliest convenience.
[2018-09-22] MEDS ORDERED: PROPOFOL 20 ML ONE ×2 (12:51→13:52)
[2018-09-22] MEDS ORDERED: DEXAMETHASONE SOD PHOSPHATE 4 MG/1 ML VIAL ONE (12:54)
[2018-09-22] MEDS ORDERED: LIDOCAINE HCL/PF 2% SDV 5ML VIAL ONE (12:54)
--- NOTE | 2018-09-22 13:40 | PN ---
Teaching Attending Note Name of Resident: Florencia Jesus ATTENDING PHYSICIAN STATEMENT I saw and evaluated the patient. I reviewed the resident's note and discussed the case with the resident. I agree with the resident's findings and plan as documented with exceptions below. SUBJECTIVE: patient seen and examined. Still with intermittent right flank and suprapubic discomfort, overall improved. OBJECTIVE: Vital Signs Period Temp Pulse Resp BP Sys/Small Pulse Ox Last 24 Hr 98.1 F-98.8 F 66-79 20-20 91-124/49-84 98-99 Intake & Output 09/19/18 09/20/18 09/21/18 09/22/18 23:59 23:59 23:59 23:59 Intake Total 1750 1700 2300 1110 Balance 1750 1700 2300 1110 General: sitting in bed in no acute distress Chest: CTAB, no rales or wheezing Abdomen:Soft, mild right CVA and suprapubic tenderness, positive bowel sounds, no voluntary or involuntary guarding or rigidity Extremities: no edema Home Medications Medication Instructions Recorded Ibuprofen [Motrin -] 400 mg PO QID 09/18/18 Active Medications Acetaminophen (Tylenol -) 650 mg PO Q4H PRN PRN Reason: PAIN Last Admin: 09/19/18 01:33 Dose: 650 mg Docusate Sodium (Colace -) 100 mg PO BID [facility] Last Admin: 09/22/18 09:43 Dose: 100 mg Enoxaparin Sodium (Lovenox -) 40 mg SQ DAILY [facility] Last Admin: 09/21/18 10:28 Dose: 40 mg Hydrocortisone Acetate (Anusol Hc Suppository -) 25 mg RC BID [facility] Stop: 09/24/18 11:14 Last Admin: 09/22/18 09:44 Dose: 25 mg Ceftriaxone Sodium 2 gm/ (Dextrose) 100 mls @ 200 mls/hr IVPB DAILY [facility]; Protocol Last Admin: 09/22/18 09:42 Dose: 200 mls/hr Dextrose/Lactated Ringer's (D5-Lr -) 1,000 mls @ 100 mls/hr IV ASDIR [facility] Last Admin: 09/22/18 09:43 Dose: 100 mls/hr Polyethylene Glycol (Miralax (For Daily Use) -) 17 gm PO BID [facility] Last Admin: 09/22/18 09:44 Dose: Not Given Laboratory Results - last 24 hr 01/16/19 01/16/19 01/16/19 06:00 06:00 06:00 WBC 10.3 H RBC 3.62 Hgb 11.5 Hct 33.0 MCV 91.4 MCH 31.8 MCHC 34.9 RDW 13.0 Plt Count 396 MPV 8.4 PT with INR 12.30 INR 1.04 Sodium 137 Potassium 4.1 Chloride 103 Carbon Dioxide 26 Anion Gap 7 L BUN 11 Creatinine 0.5 L Creat Clearance w eGFR > 60 Random Glucose 88 Calcium 9.0 Phosphorus 3.9 Magnesium 2.0 Total Bilirubin 0.3 AST 13 L ALT 25 Alkaline Phosphatase 73 Total Protein 6.6 Albumin 3.3 L Microbiology 09/18/18 08:40 Blood - Peripheral Venous Blood Culture - Preliminary NO GROWTH OBTAINED AFTER 96 HOURS, INCUBATION TO CONTINUE FOR 1 DAYS. 09/18/18 08:50 Blood - Peripheral Venous Blood Culture - Preliminary NO GROWTH OBTAINED AFTER 96 HOURS, INCUBATION TO CONTINUE FOR 1 DAYS. 09/17/18 23:47 Urine - Urine Clean Catch Urine Culture - Final Escherichia Coli ASSESSMENT AND PLAN: 38 yof with PMhx of right kidney stone s/p stent placement admitted with right flank pain/foul smelling urine,also found with 9 weeks -Complicated E.coli UTI/cysitits/suspected right pyelonephritis -Right ureteral stent -Unplanned/undesired 9 weeks -Constipation -Haemorrhoidal bleed Plan: Ceftriaxone, urine cx noted. For right ureteral stent removal. IV abx x 24 hours, transition to Cefuroxime tomorrow if no new concerns. Ob input noted, outpatient follow up for possible D&C Anusol supp Aggressive bowel regimen [id number] lovenox Dispo d/c in 24 hours on po abx post stent removal if no new concerns. Plan discussed with patient in detail, all questions answered.
[2018-09-22] MEDS ORDERED: LIDOCAINE HCL 2% JELLY 10 ML CARTRIDGE ONE (13:48)
--- NOTE | 2018-09-22 13:49 | OP ---
Operative Note - Note: Operative Date: 09/22/18 Pre-Operative Diagnosis: retained R JJ stent, UTI/pyelonephritis Operation: cysto R JJ stent removal Findings: retained R JJ stent Post-Operative Diagnosis: Same as Pre-op Surgeon: Guilherme Marti Anesthesiologist/QUALITY CONTROL TESTER: Sanchez Claros Anesthesia: General, Local Specimens Removed: R JJ stent Estimated Blood Loss (mls): 0 Operative Report Dictated: Yes
[2018-09-22] MEDS ORDERED: GENTAMICIN SO4 80 MG/2 ML VIAL ONE (13:58)
[2018-09-22] MEDS ORDERED: GENTAMICIN SO4 80 MG/2 ML VIAL IVPB ONE (14:02)
[2018-09-22] MEDS: ACETAMINOPHEN 325 MG TABLET (FP) PO PRN ×2 (15:29→19:17)
[2018-09-22] MEDS: DEXTROSE 5%-LACTATED RINGERS 1,000 ML IV SCH ×2 (15:30→23:55)
--- NOTE | 2018-09-22 16:01 | PN ---
Physical Exam: SUBJECTIVE: Patient seen and examined by me at bedside No acute events overnight Seen this morning before procedure and reports flank pain and suprapubic tenderness, which has been the same. Patient still complains of constipation despite using maalox. Will need to use suppositories Denies any fever, chills, nausea, vomiting, chest pain, palpitations, shortness of breath. OBJECTIVE: Vital Signs Period Temp Pulse Resp BP Sys/Small Pulse Ox Last 24 Hr 97.8 F-98.8 F 58-79 12-20 81-124/42-84 95-99 GENERAL: The patient is awake, alert, and fully oriented, in no acute distress. EYES: Sclera anicteric, conjunctiva clear. No ptosis. ENT: Moist mucous membranes. LUNGS: CTA bilaterally, no wheezes, no crackles, no accessory muscle use. HEART: Regular rate and rhythm, S1, S2 without murmur, rub or gallop. ABDOMEN: Soft, Mild tenderness upon palpation of suprapubic region, nondistended , normoactive bowel sounds (+) flank pain bilaterally EXTREMITIES: No edema. SKIN: Warm, dry, normal turgor or lesions Laboratory Results - last 24 hr 09/22/18 09/22/18 09/22/18 06:00 06:00 06:00 WBC 10.3 H RBC 3.62 Hgb 11.5 Hct 33.0 MCV 91.4 MCH 31.8 MCHC 34.9 RDW 13.0 Plt Count 396 MPV 8.4 PT with INR 12.30 INR 1.04 Sodium 137 Potassium 4.1 Chloride 103 Carbon Dioxide 26 Anion Gap 7 L BUN 11 Creatinine 0.5 L Creat Clearance w eGFR > 60 Random Glucose 88 Calcium 9.0 Phosphorus 3.9 Magnesium 2.0 Total Bilirubin 0.3 AST 13 L ALT 25 Alkaline Phosphatase 73 Total Protein 6.6 Albumin 3.3 L Active Medications Generic Name Dose Route Start Last Admin Trade Name Freq PRN Reason Stop Dose Admin Acetaminophen 650 mg 09/22/18 14:28 09/22/18 15:29 Tylenol - PO 650 mg Q4H PRN Administration PAIN Docusate Sodium 100 mg 09/22/18 22:00 Colace - PO BID [facility] Enoxaparin Sodium 40 mg 09/23/18 10:00 Lovenox - SQ DAILY [facility] Hydrocortisone Acetate 25 mg 09/22/18 22:00 Anusol Hc Suppository - RC 09/24/18 11:14 BID [facility] Ceftriaxone Sodium 2 gm/ 100 mls @ 200 mls/hr 09/23/18 10:00 Dextrose IVPB DAILY [facility] Protocol Dextrose/Lactated Ringer's 1,000 mls @ 100 mls/hr 09/22/18 14:28 09/22/18 15: 30 D5-Lr - IV 100 mls/hr ASDIR [facility] Administration Polyethylene Glycol 17 gm 09/22/18 22:00 Miralax (For Daily Use) - PO BID [facility] ASSESSMENT/PLAN: Patient is a 38 year old female with a PMHx of Nephrolithiasis s/p stent who presented for flank pain and suprapubic tenderness. Patient found to have Pyelonephritis and admitted for further monitoring and management. #Pyelonephritis -Likely secondary to UTI from stent placement not removed -Urine cultures grew ecoli with resistance to fluoroquinolones. Blood cultures negative -Cleared by OBGYN to have stent removed by urology under general anesthesia -Continue IV Rocephin 2gm daily (Day #5). Transition to Cefuroxime tomorrow if no new concerns -Roxicodone PRN for pain control #Early Stage -No FHR on U/S. Undesired . May proceed with general anesthesia, as per OBGYN -If patient does not have passage of POC, will need D&C as outpatient. #Suspected Internal Hemorrhoids -Likely from constipation -GI recommendations appreciated. -Continue Miralax daily and Anusol suppository BID for 5 days -Will need to follow up as outpatient if bleeding persists #Constipation -Continue Miralax, colace and suppository -Will consider Lactulose if no bowel movements F/E/N -IV LR @100mls/hr -Electrolytes wnl -Regular diet then NPO after midnight Prophylaxis -Lovenox for DVT but will stop prior to procedure -No GI required Disposition -Full code -Patient scheduled for cysto today and will have patient another 24 hours on IV abx. Likely discharged tomorrow Florencia Jesus MD- PGY3 Visit type - Emergency Visit Emergency Visit: Yes ED Registration Date: 09/18/18 Care time: The patient presented to the Emergency Department on the above date and was hospitalized for further evaluation of their emergent condition. - New Patient This patient is new to me today: No - Critical Care Critical Care patient: No
[2018-09-23 07:15] LABS: HEMATOCRIT 31.8 % (32.4-45.2); HEMOGLOBIN 10.7 GM/dL (10.7-15.3); MCH 30.7 pg (25.7-33.7); MCHC 33.5 g/dl (32.0-36.0); MEAN CELL VOLUME 91.6 fl (80-96); MEAN PLT VOLUME 8.7 fl (7.5-11.1); PLATELET COUNT 389 K/MM3 (134-434); RBC 3.47 M/mm3 (3.60-5.2); RDW 12.9 % (11.6-15.6); WHITE BLOOD COUNT 14.3 K/mm3 (4.0-10.0)
[2018-09-23 07:44] LABS: ANION GAP 9 MMOL/L (8-16); BLOOD UREA NITROGEN 9 mg/dL (7-18); CALCIUM 8.9 mg/dL (8.5-10.1); CHLORIDE 107 mmol/L (98-107); CO2 22 mmol/L (21-32); CREATININE 0.5 mg/dL (0.55-1.3); GLUCOSE,RANDOM 127 mg/dL (74-106); POTASSIUM 3.9 mmol/L (3.5-5.1); SODIUM 138 mmol/L (136-145)
--- NOTE | 2018-09-23 09:08 | OP ---
DATE OF OPERATION: 09/22/2018 PREOPERATIVE DIAGNOSES: Retained right double-J stent, pyelonephritis, urinary tract infection. POSTOPERATIVE DIAGNOSES: Retained right double-J stent, pyelonephritis, urinary tract infection. PROCEDURE: Cystoscopy, right double-J stent removal. SURGEON: Guilherme Plata MD PROFESSOR OF POULTRY SCIENCE: None. ANESTHESIA: General via laryngeal mask plus local. TURNING SANDER TENDER: Sanchez Claros CRNA SPECIMEN: Right double-J stent. CULTURES: None. DRAINS: None. ESTIMATED BLOOD LOSS: None. COMPLICATIONS: None. PROCEDURE: The patient was brought in the operating room and placed on the operating table in the supine position. After administration of general anesthesia via laryngeal mask intravenous antibiotics were administered. Sequential compression devices were placed. Patient was placed in the dorsal lithotomy position. The vagina and perineum were prepped and draped in the usual sterile manner. A 22-Niuean cystoscope was inserted into the bladder under direct vision. The bladder was emptied. Urine was evacuated. Cystoscopy was performed. This demonstrated no tumors, stones or inflammation. Both ureteral orifices were in their usual location with a right double-J stent in good normal position. The right double-J stent was grasped at the tip and removed. The bladder was emptied. Cystoscope removed. She tolerated the procedure well, was transferred to recovery in stable condition. GUILHERME PLATA M.D. [id number]
[2018-09-23] MEDS ORDERED: DEXTROSE 5%-WATER 100 ML IVPB ONE (09:22)
[2018-09-23] MEDS: CEFTRIAXONE 2 GM in DEXTROSE 5%-WATER 100 ML IVPB SCH (09:38)
[2018-09-23] MEDS: DOCUSATE SODIUM 100 MG CAPSULE (FP) PO SCH ×2 (09:38→21:43)
[2018-09-23] MEDS: ENOXAPARIN NA (PORCINE) 40 MG/0.4 ML DISP.SYRIN SQ SCH (09:39)
[2018-09-23] MEDS: HYDROCORTISONE ACETATE 25 MG/SUPP.RECT RC SCH ×2 (09:39→21:43)
[2018-09-23] MEDS: POLYETHYLENE GLYCOL 3350 119 GM BTL PO SCH ×2 (09:39→21:43)
[2018-09-23 11:03] LABS: BASO % 0.6 % (0-2.0); EOS % 0.3 % (0-4.5); HEMOGLOBIN 11.5 GM/dL (10.7-15.3); LYMPH % 23.7 % (8-40); MCH 31.5 pg (25.7-33.7); MCHC 34.8 g/dl (32.0-36.0); MEAN CELL VOLUME 90.4 fl (80-96); MEAN PLT VOLUME 8.6 fl (7.5-11.1); MONO % 7.5 % (3.8-10.2); NEUT % 67.9 % (42.8-82.8); PLATELET COUNT 409 K/MM3 (134-434); RBC 3.65 M/mm3 (3.60-5.2); WHITE BLOOD COUNT 14.6 K/mm3 (4.0-10.0)
--- NOTE | 2018-09-23 13:11 | PN ---
Teaching Attending Note Name of Resident: Florencia Jesus ATTENDING PHYSICIAN STATEMENT I saw and evaluated the patient. I reviewed the resident's note and discussed the case with the resident. I agree with the resident's findings and plan as documented with exceptions below. SUBJECTIVE: patient seen and examined, ongoing right flank pain, urinary symptoms. no fevers /chills. OBJECTIVE: Vital Signs Period Temp Pulse Resp BP Sys/Small Pulse Ox Last 24 Hr 97.8 F-99 F 58-80 12-20 81-109/42-70 95-98 Intake & Output 09/20/18 09/21/18 09/22/18 09/23/18 23:59 23:59 23:59 23:59 Intake Total 1700 2300 2910 1350 Output Total 0 Balance 1700 2300 2910 1350 General: sitting in bed in no acute distress Abdomen: soft, mild right CVA and suprapubic tenderness, no voluntary or involuntary guarding or rigidity, positive bowel sounds Extremities: no edema Chest: CTAB, no rales or wheezing Home Medications Medication Instructions Recorded Ibuprofen [Motrin -] 400 mg PO QID 09/18/18 Active Medications Acetaminophen (Tylenol -) 650 mg PO Q4H PRN PRN Reason: PAIN Last Admin: 09/22/18 19:17 Dose: 650 mg Docusate Sodium (Colace -) 100 mg PO BID [facility] Last Admin: 09/23/18 09:38 Dose: 100 mg Enoxaparin Sodium (Lovenox -) 40 mg SQ DAILY [facility] Last Admin: 09/23/18 09:39 Dose: Not Given Hydrocortisone Acetate (Anusol Hc Suppository -) 25 mg RC BID [facility] Stop: 09/24/18 11:14 Last Admin: 09/23/18 09:39 Dose: Not Given Ceftriaxone Sodium 2 gm/ (Dextrose) 100 mls @ 200 mls/hr IVPB DAILY [facility]; Protocol Last Admin: 09/23/18 09:38 Dose: 200 mls/hr Dextrose/Lactated Ringer's (D5-Lr -) 1,000 mls @ 100 mls/hr IV ASDIR [facility] Last Admin: 09/22/18 23:55 Dose: 100 mls/hr Polyethylene Glycol (Miralax (For Daily Use) -) 17 gm PO BID [facility] Last Admin: 09/23/18 09:39 Dose: Not Given Laboratory Results - last 24 hr 09/18/18 09/23/18 09/23/18 10:45 06:00 06:00 WBC 14.3 H RBC 3.47 L Hgb 10.7 Hct 31.8 L MCV 91.6 MCH 30.7 MCHC 33.5 RDW 12.9 Plt Count 389 MPV 8.7 Absolute Neuts (auto) Neutrophils % Lymphocytes % Monocytes % Eosinophils % Basophils % Nucleated RBC % Sodium 138 Potassium 3.9 Chloride 107 Carbon Dioxide 22 Anion Gap 9 BUN 9 Creatinine 0.5 L Creat Clearance w eGFR > 60 Random Glucose 127 H Calcium 8.9 C. trachomatis (SAMANTA) Negative N.gonorrhoeae DNA (SAMANTA) Negative T. vaginalis (SAMANTA) Negative 09/23/18 10:39 WBC 14.6 H RBC 3.65 Hgb 11.5 Hct 33.0 MCV 90.4 MCH 31.5 MCHC 34.8 RDW 13.0 Plt Count 409 MPV 8.6 Absolute Neuts (auto) 9.9 H Neutrophils % 67.9 Lymphocytes % 23.7 D Monocytes % 7.5 Eosinophils % 0.3 Basophils % 0.6 Nucleated RBC % 0 Sodium Potassium Chloride Carbon Dioxide Anion Gap BUN Creatinine Creat Clearance w eGFR Random Glucose Calcium C. trachomatis (SAMANTA) N.gonorrhoeae DNA (SAMANTA) T. vaginalis (SAMANTA) Microbiology 09/18/18 08:40 Blood - Peripheral Venous Blood Culture - Final NO GROWTH AFTER 5 DAYS INCUBATION 09/18/18 08:50 Blood - Peripheral Venous Blood Culture - Final NO GROWTH AFTER 5 DAYS INCUBATION 09/17/18 23:47 Urine - Urine Clean Catch Urine Culture - Final Escherichia Coli ASSESSMENT AND PLAN: 38 yof with PMhx of right kidney stone s/p stent placement admitted with right flank pain/foul smelling urine,also found with 9 weeks -Complicated E.coli UTI/cysitits/suspected right pyelonephritis -Right ureteral stent -Unplanned/undesired 9 weeks -Constipation -Haemorrhoidal bleed -Leucocytosis, ?Post op surgical stress Plan: Ceftriaxone, urine cx noted. For right ureteral stent removal. WBC high, trend, overall clincally unchanged. Hypotensive episodes last 24 hours ?in the setting of NPO and fluid shift during surgery. Monitor closely for worsening infection. Ob input noted, outpatient follow up for possible D&C Anusol supp Aggressive bowel regimen DVTPPX lovenox Dispo d/c in 24 hours on po abx if WBC and hemodynamics stable. Plan discussed with patient in detail, all questions answered.
[2018-09-23] MEDS ORDERED: diphenhydrAMINE HCL 25 MG CAPSULE (FP) PO ONE (14:15)
[2018-09-23] MEDS: DEXTROSE 5%-LACTATED RINGERS 1,000 ML IV SCH (14:21)
[2018-09-23] MEDS ORDERED: KETOROLAC TROMETHAMINE 15 MG/ML VIAL IM ONE ×2 (14:56→20:31)
--- NOTE | 2018-09-23 14:56 | PN ---
Physical Exam: SUBJECTIVE: Patient seen and examined by me at bedside Hypotensive in the last 24 hours Reports dysuria and foul smelling urine with flank pain Patient still complains of constipation despite using maalox. Will need to use suppositories Denies any fever, chills, nausea, vomiting, chest pain, palpitations, shortness of breath. OBJECTIVE: Vital Signs Period Temp Pulse Resp BP Sys/Small Pulse Ox Last 24 Hr 97.9 F-99 F 58-87 18-20 86-109/45-70 95-99 GENERAL: The patient is awake, alert, and fully oriented, in no acute distress. EYES: Sclera anicteric, conjunctiva clear. No ptosis. ENT: Moist mucous membranes. LUNGS: CTA bilaterally, no wheezes, no crackles, no accessory muscle use. HEART: Regular rate and rhythm, S1, S2 without murmur, rub or gallop. ABDOMEN: Soft, Mild tenderness upon palpation of suprapubic region, nondistended , normoactive bowel sounds (+) flank pain bilaterally EXTREMITIES: No edema. SKIN: Warm, dry, normal turgor or lesions Laboratory Results 09/23/18 10:39 09/23/18 06:00 Active Medications Generic Name Dose Route Start Last Admin Trade Name Freq PRN Reason Stop Dose Admin Acetaminophen 650 mg 09/22/18 14:28 09/22/18 19:17 Tylenol - PO 650 mg Q4H PRN Administration PAIN Docusate Sodium 100 mg 09/22/18 22:00 09/23/18 09:38 Colace - PO 100 mg BID [facility] Administration Enoxaparin Sodium 40 mg 09/23/18 10:00 09/23/18 09:39 Lovenox - SQ Not Given DAILY [facility] Hydrocortisone Acetate 25 mg 09/22/18 22:00 09/23/18 09:39 Anusol Hc Suppository - RC 09/24/18 11:14 Not Given BID [facility] Ceftriaxone Sodium 2 gm/ 100 mls @ 200 mls/hr 09/23/18 10:00 09/23/18 09:38 Dextrose IVPB 200 mls/hr DAILY [facility] Administration Protocol Dextrose/Lactated Ringer's 1,000 mls @ 100 mls/hr 09/22/18 14:28 09/23/18 14: 21 D5-Lr - IV 100 mls/hr ASDIR [facility] Administration Polyethylene Glycol 17 gm 09/22/18 22:00 09/23/18 09:39 Miralax (For Daily Use) - PO Not Given BID [facility] ASSESSMENT/PLAN: Patient is a 38 year old female with a PMHx of Nephrolithiasis s/p stent who presented for flank pain and suprapubic tenderness. Patient found to have Pyelonephritis and admitted for further monitoring and management. #Pyelonephritis -Likely secondary to UTI from stent placement not removed -Urine cultures grew ecoli with resistance to fluoroquinolones. Blood cultures negative -Cleared by OBGYN to have stent removed by urology under general anesthesia -Continue IV Rocephin 2gm daily (Day #5). Transition to Cefuroxime tomorrow if no new concerns -Roxicodone PRN for pain control #Early Stage -No FHR on U/S. Undesired . May proceed with general anesthesia, as per OBGYN -If patient does not have passage of POC, will need D&C as outpatient. #Suspected Internal Hemorrhoids -Likely from constipation -GI recommendations appreciated. -Continue Miralax daily and Anusol suppository BID for 5 days -Will need to follow up as outpatient if bleeding persists #Constipation -Continue Miralax, colace and suppository -Will consider Lactulose if no bowel movements F/E/N -IV LR/D5 @100mls/hr -Electrolytes wnl -Regular diet then NPO after midnight Prophylaxis -Lovenox for DVT -No GI required Disposition -Full code -S/P cysto but patient complains of dysuria, flank pain, and continues to have leukocytosis with hypotension. Will remain inpatient another 24 hours Florencia Jesus MD- PGY3 Visit type - Emergency Visit Emergency Visit: Yes ED Registration Date: 09/18/18 Care time: The patient presented to the Emergency Department on the above date and was hospitalized for further evaluation of their emergent condition. - New Patient This patient is new to me today: No - Critical Care Critical Care patient: No
[2018-09-23] MEDS ORDERED: KETOROLAC TROMETHAMINE 30 MG/1 ML VIAL IVPUSH ONE (14:57)
[2018-09-24] MEDS ORDERED: KETOROLAC TROMETHAMINE 15 MG/ML VIAL IM ONE (04:33)
[2018-09-24 07:10] LABS: HEMATOCRIT 32.2 % (32.4-45.2); MCH 31.4 pg (25.7-33.7); MCHC 34.1 g/dl (32.0-36.0); MEAN PLT VOLUME 8.9 fl (7.5-11.1); PLATELET COUNT 381 K/MM3 (134-434); RDW 13.2 % (11.6-15.6); WHITE BLOOD COUNT 12.3 K/mm3 (4.0-10.0)
[2018-09-24 07:55] LABS: ANION GAP 7 MMOL/L (8-16); BLOOD UREA NITROGEN 9 mg/dL (7-18); CALCIUM 8.5 mg/dL (8.5-10.1); CHLORIDE 105 mmol/L (98-107); CO2 25 mmol/L (21-32); CREATININE 0.5 mg/dL (0.55-1.3); GLUCOSE,RANDOM 79 mg/dL (74-106); POTASSIUM 4.2 mmol/L (3.5-5.1); SODIUM 137 mmol/L (136-145)
[2018-09-24 08:39] LABS: URINE APPEARANCE SLCLOUDY; URINE BILIRUBIN NEGATIVE (<2.0 mg/dL); URINE COLOR LTYELLOW; URINE GLUCOSE (UA) NEGATIVE (NEGATIVE); URINE KETONE NEGATIVE (NEGATIVE); URINE LEUK ESTERASE TRACE (NEGATIVE); URINE NITRITE NEGATIVE (NEGATIVE); URINE PROTEIN NEGATIVE (NEGATIVE); URINE UROBILINOGEN NEGATIVE mg/dL (0.2-1.0)
[2018-09-24 08:49] LABS: EPI CELLS MANY /HPF (FEW); URINE MUCUS RARE
[2018-09-24] MEDS ORDERED: PT OWN MED DRAWER 7, Y5N ONE (08:51)
[2018-09-24] MEDS ORDERED: DEXTROSE 5%-WATER 100 ML IVPB ONE (08:51)
[2018-09-24] MEDS: DOCUSATE SODIUM 100 MG CAPSULE (FP) PO SCH (09:02)
[2018-09-24] MEDS: CEFTRIAXONE 2 GM in DEXTROSE 5%-WATER 100 ML IVPB SCH (09:02)
[2018-09-24] MEDS: ENOXAPARIN NA (PORCINE) 40 MG/0.4 ML DISP.SYRIN SQ SCH (09:03)
[2018-09-24] MEDS: POLYETHYLENE GLYCOL 3350 119 GM BTL PO SCH (09:03)
[2018-09-24] MEDS: HYDROCORTISONE ACETATE 25 MG/SUPP.RECT RC SCH (09:03)
--- NOTE | 2018-09-24 09:15 | PATH ---
Surgical Pathology Report Patient Name: DESIRAE WADDELL Med. Rec. #: [id number] /Age/Gender: 1980 (Age: 38) / F Account: [id number] Location: [facility] MED/SURG Taken: 09/22/2018 Received: 09/23/2018 Reported: 09/24/2018 Physicians: Guilherme Marti M.D. PHYSICIAN EMERGENCY DEPT Specimen(s) Received REMOVED STENT Clinical History Pyelonephritis Final Diagnosis STENT, REMOVAL: CONSISTENT WITH URETERAL STENT. MACROSCOPIC DIAGNOSIS. Electronically Signed Ibis Langston M.D. Gross Description Received fresh labeled "removed stent," is a 35 cm in length green, coiled portion of tubing, consistent with a ureteral stent. No soft tissue is present. No sections are submitted, gross only. /09/23/2018 saudi09/23/2018
--- NOTE | 2018-09-24 09:25 | DS ---
Physical Exam: SUBJECTIVE: Patient seen and examined by me at bedside No acute events overnight Patient reports feeling much better but still feels slight flank pain with foul smelling urine Patient reports having a nonbloody bowel movement yesterday Denies any fever, chills, nausea, vomiting, chest pain, palpitations, shortness of breath. OBJECTIVE: Vital Signs Period Temp Pulse Resp BP Sys/Small Pulse Ox Last 24 Hr 98.2 F-98.7 F 66-87 18-20 82-111/46-69 98 PHYSICAL EXAM GENERAL: The patient is awake, alert, and fully oriented, in no acute distress. EYES: Sclera anicteric, conjunctiva clear. No ptosis. ENT: Moist mucous membranes. LUNGS: CTA bilaterally, no wheezes, no crackles, no accessory muscle use. HEART: Regular rate and rhythm, S1, S2 without murmur, rub or gallop. ABDOMEN: Soft, Mild tenderness upon palpation of suprapubic region, nondistended , normoactive bowel sounds (+) mild flank pain bilaterally EXTREMITIES: No edema. SKIN: Warm, dry, normal turgor or lesions LABS Laboratory Results - last 24 hr 09/23/18 09/23/18 09/24/18 10:39 21:00 06:00 WBC 14.6 H 12.3 H RBC 3.65 3.50 L Hgb 11.5 11.0 Hct 33.0 32.2 L MCV 90.4 92.0 MCH 31.5 31.4 MCHC 34.8 34.1 RDW 13.0 13.2 Plt Count 409 381 MPV 8.6 8.9 Absolute Neuts (auto) 9.9 H Neutrophils % 67.9 Lymphocytes % 23.7 D Monocytes % 7.5 Eosinophils % 0.3 Basophils % 0.6 Nucleated RBC % 0 Sodium Potassium Chloride Carbon Dioxide Anion Gap BUN Creatinine Creat Clearance w eGFR Random Glucose Calcium Urine Color Ltyellow Urine Appearance Slcloudy Urine pH 6.0 Ur Specific [place] 1.014 Urine Protein Negative Urine Glucose (UA) Negative Urine Ketones Negative Urine Blood 1+ H Urine Nitrite Negative Urine Bilirubin Negative Urine Urobilinogen Negative Ur Leukocyte Esterase Trace Urine WBC (Auto) 18 Urine RBC (Auto) 1 Ur Epithelial Cells Many Urine Mucus Rare 09/24/18 06:00 WBC RBC Hgb Hct MCV MCH MCHC RDW Plt Count MPV Absolute Neuts (auto) Neutrophils % Lymphocytes % Monocytes % Eosinophils % Basophils % Nucleated RBC % Sodium 137 Potassium 4.2 Chloride 105 Carbon Dioxide 25 Anion Gap 7 L BUN 9 Creatinine 0.5 L Creat Clearance w eGFR > 60 Random Glucose 79 Calcium 8.5 Urine Color Urine Appearance Urine pH Ur Specific [place] Urine Protein Urine Glucose (UA) Urine Ketones Urine Blood Urine Nitrite Urine Bilirubin Urine Urobilinogen Ur Leukocyte Esterase Urine WBC (Auto) Urine RBC (Auto) Ur Epithelial Cells Urine Mucus PRE-HOSPITAL COURSE: Patient is a 38 year old female who presented for right flank pain x1 week that was progressively worsening associated with constipation and rectal bleeding. Patient reported six months prior she had pyelonephritis and was treated with Ceftriaxone with stents placed by Dr. Marti. However, patient never followed up with Dr. Marti and never had stents removed. In the ED patient was found to have UTI, Acute Pyelonephritis as well as 6 weeks . Patient was then admitted for further management and evaluation. HOSPITAL COURSE: Throughout hospitalization patient was started on IV Ceftriaxone for Acute Pyelonephritis. She was seen by Urology who scheduled patient have stents removed, but patient wanted to be under general anesthesia. She was seen by OBGYN and patient reported undesired and wants to move forward with the procedure. Patient had procedure done without complications. Patient was also found to have rectal bleeding and was evaluated by GI. Patient likely had constipation causing worsening hemorrhoids. She was given a bowel regimen with Colace, Miralax, and Suppositories. She had no further bleeding and started having bowel movements. Patient's pain improved daily and stable for discharge. Patient recommended to follow up with OBGYN for outpatient D&C. All information was provided and patient verbalized understanding. Date of Admission:09/18/18 Date of Discharge: 09/24/18 Minutes to complete discharge: 45 Discharge Summary Reason For Visit: /PYELONEPHRITIS Current Active Problems Pyelonephritis (Acute) Rectal bleed (Acute) Condition: Stable - Instructions Diet, Activity, Other Instructions: RECOMMENDATIONS: -You were seen here for an infection in urine and kidneys. You were found to have infected stents and ultimately removed by the urologist. -You will be paced on Antibiotics for this infection for an additional week. Please forklift picker the prescription from your pharmacy -You were also found to be around 6 weeks and seen by an OBGYN. There was no heart rate on the ultrasound. You will need to follow up with the OBGYN by next week to discuss your options. -You were also found to be constipated, which might have caused you to have rectal bleeding. You were seen by the stomach specialist who recommended stool softners, miralax, and suppositories. His information card was given to you and you will also receive his information on the discharge packet. If you continue to have constipation and/or rectal bleeding, please make an appointment with him. -Stay hydrated with lots of fluids and maintain a high fiber diet to help with the constipation. -You may take over the counter Tylenol for the pain. -If you start to have severe vaginal or rectal bleeding, severe back pain, fevers >102, please return to the emergency department FOLLOW UP: -Please follow up with your primary care within 1-2 weeks -Please follow up with the OBGYN by next week as it is important to come up with a plan on what to do next with the . His information will be found in the packet. His name is Dr. Serrano -Please follow up with Urology within 2 weeks[address] His name [address] Dr[address] Marti. His information will be found in the discharge packet -Follow up with the GI (stomach) doctor if your constipation is not improving or if you experience any more rectal bleeding. His information will be found in the packet. MEDICATIONS: -You will be taking antibiotics for an additional week. The antibiotics has been sent to your pharmacy. It is called Cefuroxime and you will be taking it twice a day for 7 days. Take your first dose tomorrow (09/25/18) -If you continue to have Constipation, you may purchase over the counter Miralax , colace, senna, and suppositories at your pharmacy. -You may take Tylenol for the pain Referrals: Pawan Abrams DO [Staff Physician] - Jimmy Serrano MD [Staff Physician] - Guilherme Marti MD [Staff Physician] - Disposition: HOME - Home Medications Comprehensive Discharge Medication List: Ambulatory Orders Ibuprofen [Motrin -] 400 mg PO QID 09/18/18 This patient is new to me today: No Emergency Visit: Yes ED Registration Date: 09/18/18 Care time: The patient presented to the Emergency Department on the above date and was hospitalized for further evaluation of their emergent condition. Critical Care patient: No - Discharge Referral Referred to [facility] Med P.C[facility] Yes Physician Referral: Malik Abrams DO (GI)
[2018-09-24] MEDS ORDERED: IBUPROFEN 400 MG TABLET (FP) PO ONE (09:35)
[2018-09-24 10:03] VITALS: BP 94/56; PULSE 67; TEMP 97.9
--- NOTE | 2018-09-24 10:45 | PN ---
Teaching Attending Note Name of Resident: Florencia Jesus ATTENDING PHYSICIAN STATEMENT I saw and evaluated the patient. I reviewed the resident's note and discussed the case with the resident. I agree with the resident's findings and plan as documented with exceptions below. SUBJECTIVE: Patient seen and examined. Improved, back pain and urinary symptoms better, no fevers, chills or dizziness. Ambulating well, tolerating diet well. OBJECTIVE: Vital Signs Period Temp Pulse Resp BP Sys/Small Pulse Ox Last 24 Hr 97.9 F-98.7 F 66-87 18-20 82-111/46-69 97-98 Intake & Output 09/21/18 09/22/18 09/23/18 09/24/18 23:59 23:59 23:59 23:59 Intake Total 2300 2910 2550 1100 Output Total 0 Balance 2300 2910 2550 1100 general: sitting in bed in no acute distress Abdomen:Soft, NT mild suprapubic tenderness, mild right CVA tenderness Extremities: no edema Home Medications Medication Instructions Recorded Cefuroxime Axetil [Cefuroxime] 500 mg PO BID #14 tablet 09/24/18 Ibuprofen [Motrin -] 400 mg PO BID PRN #10 tab 09/24/18 Laboratory Results - last 24 hr 09/23/18 09/23/18 09/24/18 10:39 21:00 06:00 WBC 14.6 H 12.3 H RBC 3.65 3.50 L Hgb 11.5 11.0 Hct 33.0 32.2 L MCV 90.4 92.0 MCH 31.5 31.4 MCHC 34.8 34.1 RDW 13.0 13.2 Plt Count 409 381 MPV 8.6 8.9 Absolute Neuts (auto) 9.9 H Neutrophils % 67.9 Lymphocytes % 23.7 D Monocytes % 7.5 Eosinophils % 0.3 Basophils % 0.6 Nucleated RBC % 0 Sodium Potassium Chloride Carbon Dioxide Anion Gap BUN Creatinine Creat Clearance w eGFR Random Glucose Calcium Urine Color Ltyellow Urine Appearance Slcloudy Urine pH 6.0 Ur Specific [place] 1.014 Urine Protein Negative Urine Glucose (UA) Negative Urine Ketones Negative Urine Blood 1+ H Urine Nitrite Negative Urine Bilirubin Negative Urine Urobilinogen Negative Ur Leukocyte Esterase Trace Urine WBC (Auto) 18 Urine RBC (Auto) 1 Ur Epithelial Cells Many Urine Mucus Rare 09/24/18 06:00 WBC RBC Hgb Hct MCV MCH MCHC RDW Plt Count MPV Absolute Neuts (auto) Neutrophils % Lymphocytes % Monocytes % Eosinophils % Basophils % Nucleated RBC % Sodium 137 Potassium 4.2 Chloride 105 Carbon Dioxide 25 Anion Gap 7 L BUN 9 Creatinine 0.5 L Creat Clearance w eGFR > 60 Random Glucose 79 Calcium 8.5 Urine Color Urine Appearance Urine pH Ur Specific [place] Urine Protein Urine Glucose (UA) Urine Ketones Urine Blood Urine Nitrite Urine Bilirubin Urine Urobilinogen Ur Leukocyte Esterase Urine WBC (Auto) Urine RBC (Auto) Ur Epithelial Cells Urine Mucus Microbiology 09/18/18 08:40 Blood - Peripheral Venous Blood Culture - Final NO GROWTH AFTER 5 DAYS INCUBATION 09/18/18 08:50 Blood - Peripheral Venous Blood Culture - Final NO GROWTH AFTER 5 DAYS INCUBATION 09/17/18 23:47 Urine - Urine Clean Catch Urine Culture - Final Escherichia Coli Renal US results noted. ASSESSMENT AND PLAN: 38 yof with PMhx of right kidney stone s/p stent placement admitted with right flank pain/foul smelling urine,also found with 9 weeks -Complicated E.coli UTI/cysitits/suspected right pyelonephritis -Right ureteral stent -Unplanned/undesired 9 weeks -Constipation -Haemorrhoidal bleed -Leucocytosis, ?Post op surgical stress Plan: WBC improved. Afebrile, clinically improved. repeat u/a better. Renal US results noted. transition to oral cefuroxime for a total of 14 days. patient aware of need for outpatient underwriting account representative and GI follow up. Intermittent low bp but asymptomatic. patient advised adequate hyration. Dispo d/c home today with outpatient urology, underwriting account representative and GI follow up. Plan discussed with patient in detail, all questions answered.
== END 2018-09-24 13:21 | disposition home or self-care (01) | DRG 443 ==
LOC: JER 21:50 → JERBED 09-18 02:21 → J7W 09-18 07:57
PROVIDERS: ADMIT Internal Medicine; ATTEND Hospitalist
PROC: 0TP98DZ Removal of Intraluminal Device from Ureter, Via Natural or Artificial Opening Endoscopic (ICD-10-PCS; principal; 2018-09-22 14:00)
DX: T83.593A Infection and inflammatory reaction due to other urinary stents, initial encounter (principal); N10 Acute pyelonephritis; K62.5 Hemorrhage of anus and rectum; E66.9 Obesity, unspecified; D64.9 Anemia, unspecified; N20.1 Calculus of ureter; K59.00 Constipation, unspecified; K64.8 Other hemorrhoids; B96.20 Unspecified Escherichia coli [E. coli] as the cause of diseases classified elsewhere; O99.210 Obesity complicating pregnancy, unspecified trimester
CPT/HCPCS: 36415; 76775-TC; 76817-TC; 80048; 80053; 81003; 81015; 82272; 83735; 84100; 84702; 85025; 85027; 85610; 86850; 86900; 86901; 87040; 87086; 87186; 87389; 87491; 87591; 87661; 88300-TC; 93005; 93010; 94760; 99285-25; J0131; J7030

== ENCOUNTER 2021-11-28 18:17 | Emergency (ER) | payer OTHER ==
[2021-11-28 18:37] VITALS: BP 134/95; PULSE 87; TEMP 97.6; BMI 30.1
[2021-11-28] MEDS ORDERED: SODIUM CHLORIDE 1,000 ML IV STA (19:43)
[2021-11-28] MEDS ORDERED: ONDANSETRON 4 MG/2 ML VIAL IVPUSH ONE (19:43)
[2021-11-28] MEDS ORDERED: morphine CARPU-JECT 4 MG/1 ML DISP.SYRIN IVPUSH ONE (19:43)
[2021-11-28] MEDS ORDERED: ONDANSETRON 4 MG/2 ML VIAL ONE (20:11)
[2021-11-28] MEDS ORDERED: morphine SULFATE 4 MG/ML VIAL ONE (20:11)
[2021-11-28 21:56] LABS: BASO % 0.1 % (0-2.0); EOS % 1.2 % (0-4.5); HEMATOCRIT 40.2 % (32.4-45.2); HEMOGLOBIN 13.4 GM/dL (10.7-15.3); LYMPH % 30.2 % (8-40); MCH 30.4 pg (25.7-33.7); MCHC 33.2 g/dl (32.0-36.0); MEAN CELL VOLUME 91.5 fl (80-96); MEAN PLT VOLUME 8.4 fl (7.5-11.1); MONO % 5.1 % (3.8-10.2); NEUT % 63.4 % (42.8-82.8); PLATELET COUNT 374 10^3/uL (134-434); RDW 13.4 % (11.6-15.6); WHITE BLOOD COUNT 13.2 K/mm3 (4.0-10.0)
[2021-11-28 22:40] LABS: ALBUMIN 4.3 g/dl (3.4-5.0); CALCIUM 9.7 mg/dL (8.5-10.1)
[2021-11-28 22:41] LABS: BLOOD UREA NITROGEN 14.7 mg/dL (7-18)
[2021-11-28 22:43] LABS: CREATININE 0.7 mg/dL (0.55-1.3)
[2021-11-28 22:44] LABS: PH,URINE 5.5 (5.0-8.0); URINE APPEARANCE CLEAR; URINE BILIRUBIN NEGATIVE (NEGATIVE); URINE COLOR YELLOW; URINE GLUCOSE (UA) NEGATIVE (NEGATIVE); URINE KETONE NEGATIVE (NEGATIVE); URINE LEUK ESTERASE NEGATIVE (NEGATIVE); URINE NITRITE NEGATIVE (NEGATIVE); URINE PROTEIN NEGATIVE (NEGATIVE); URINE UROBILINOGEN 0.2 mg/dL (0.2-1.0)
[2021-11-28 22:45] LABS: BILIRUBIN,TOTAL 0.2 mg/dL (0.2-1); TOT PROT 7.8 g/dl (6.4-8.2)
[2021-11-28 22:46] LABS: HCG,QUALITATIVE URINE Negative
[2021-11-29] MEDS ORDERED: KETOROLAC TROMETHAMINE 30 MG/1 ML VIAL IVPUSH ONE (01:01)
[2021-11-29] MEDS ORDERED: KETOROLAC TROMETHAMINE 30 MG/1 ML VIAL ONE (01:30)
[2021-11-30 19:11] LABS: SARS-CoV-2 NAA Not Detected (Not Detected)
== END 2021-11-29 01:41 | disposition home or self-care (01) ==
LOC: JERFT 18:17
PROC: 3E0333Z Introduction of Anti-inflammatory into Peripheral Vein, Percutaneous Approach (ICD-10-PCS; principal; 2021-11-28)
PROC: 3E033NZ Introduction of Analgesics, Hypnotics, Sedatives into Peripheral Vein, Percutaneous Approach (ICD-10-PCS; 2021-11-28)
PROC: 3E033GC Introduction of Other Therapeutic Substance into Peripheral Vein, Percutaneous Approach (ICD-10-PCS; 2021-11-28)
PROC: 3E0337Z Introduction of Electrolytic and Water Balance Substance into Peripheral Vein, Percutaneous Approach (ICD-10-PCS; 2021-11-28)
DX: R11.10 Vomiting, unspecified (principal)
CPT/HCPCS: 36415; 74177-TC; 80053; 81003; 83690; 84703; 85025; 87040; 87086; 87804; 99285-25; C9803-CS; U0003; U0005